=== PATIENT | male | born 1980 | race Caucasian/White ===

== ENCOUNTER 2023-03-25 10:45 | Outpatient (CLI) | payer OTHER, SELFPAY ==
[2023-03-25 11:34] LABS: Hematocrit 46.1 % (42.0-52.0); Hemoglobin 15.5 g/dL (14.0-18.0); Mean Corpuscular HGB Conc 33.6 g/dl (32-36); Mean Corpuscular Volume 89.2 fl (80-100); Mean Platelet Volume 9.7 fl (7.4-10.4); Platelet Count Result 313 k/mm3 (150-375); Red Blood Count 5.17 M/mm3 (4.6-6.20); Red Cell Distribution Width 12.2 % (11.5-14.5); White Blood Count 8.5 K/mm3 (4.5-10.0)
[2023-03-25 11:57] LABS: Alanine Aminotransferase 45 U/L (6-50); Albumin Level 4.9 g/dL (3.5-5.1); Alkaline Phosphatase 77 U/L (38-126); Anion Gap 11 mmol/L (8-16); Aspartate Amino Transferase 43 U/L (17-59); Bilirubin,Total 1.4 mg/dL (0.2-1.3); Blood Urea Nitrogen 18 mg/dL (9-20); Calcium 9.8 mg/dL (8.4-10.2); Carbon Dioxide 27 mmol/L (22-30); Chloride 104 mmol/L (98-107); Cholesterol 254 mg/dL (0-200); Estimated Glomerular Filt Rate > 60; Glucose 102 mg/dL (65-110); HDL Direct 56 mg/dL; Potassium 4.1 mmol/L (3.4-5.0); Sodium 142 mmol/L (137-145); Triglycerides 175 mg/dL (<150)
[2023-03-25 12:07] LABS: LDL Cholesterol Direct 123 mg/dL
[2023-03-29 14:59] LABS: Testosterone Free 51.5 pg/mL (35.0-155.0); Testosterone Total 324 ng/dL (250-1100)
== END 2023-03-25 10:46 | disposition home or self-care (01) ==
LOC: ANHLAB 10:47
PROVIDERS: PCP Family Medicine; Visit Provider Family Medicine
DX: Z00.00 Encounter for general adult medical examination without abnormal findings (principal); R68.82 Decreased libido; E11.9 Type 2 diabetes mellitus without complications
CPT/HCPCS: 36415; 80053; 80061; 83036; 84402; 84403; 85027

== ENCOUNTER 2023-05-25 09:01 | Outpatient (CLI) | payer OTHER, SELFPAY ==
[2023-05-25 09:58] LABS: Appearance Urine Clear (Clear); Blood Urine Negative (Negative); Color Urine Yellow (Yellow); Glucose Urine UA Negative (Negative); Ketones Urine Negative (Negative); Protein Urine Negative (Negative); Specific Grav Ur >= 1.030 (1.001-1.035)
[2023-05-25 09:59] LABS: Add Urine Microscopic? NO; Bilirubin Urine Negative (Negative); Leukocyte Esterase Ur Negative LEU/UL (Negative); Nitrate Urine Negative (Negative); Urobilinogen Urine 0.2 mg/dL (<2.0)
[2023-05-25 11:02] LABS: Trichomonas Vag PCR NOT DETECTED (NOT DETECTE)
[2023-05-25 11:27] LABS: Chlamydia trachomatis NOT DETECTED (NOT DETECTE); Neisseria gonorrhoeae PCR NOT DETECTED (NOT DETECTE)
== END 2023-05-25 09:02 | disposition home or self-care (01) ==
LOC: ANHLAB 09:03
PROVIDERS: PCP Family Medicine; Visit Provider Nurse Practitioner Family
DX: R30.0 Dysuria (principal); R36.1 Hematospermia; Z20.2 Contact with and (suspected) exposure to infections with a predominantly sexual mode of transmission
CPT/HCPCS: 81003; 87086; 87491; 87591; 87661

== ENCOUNTER 2023-08-30 12:57 | Outpatient (CLI) | payer OTHER, SELFPAY ==
[2023-08-30 13:55] LABS: Alanine Aminotransferase 65 U/L (6-50); Albumin Level 4.8 g/dL (3.5-5.1); Alkaline Phosphatase 68 U/L (38-126); Anion Gap 8 mmol/L (4-12); Aspartate Amino Transferase 47 U/L (17-59); Bilirubin,Total 1.1 mg/dL (0.2-1.3); Blood Urea Nitrogen 24 mg/dL (9-20); Calcium 9.7 mg/dL (8.4-10.2); Carbon Dioxide 28 mmol/L (22-30); Chloride 105 mmol/L (98-107); Estimated Glomerular Filt Rate > 60; Glucose 89 mg/dL (65-110); Sodium 141 mmol/L (137-145)
== END 2023-08-30 12:58 | disposition home or self-care (01) ==
LOC: ANHLAB 12:59
PROVIDERS: PCP Family Medicine; Visit Provider Family Medicine
DX: E11.9 Type 2 diabetes mellitus without complications (principal); R77.9 Abnormality of plasma protein, unspecified
CPT/HCPCS: 36415; 80053; 83036

== ENCOUNTER 2023-09-27 18:53 | Emergency (ER) | payer OTHER, SELFPAY ==
--- NOTE | ~2023-09-27 | XR_ITS ---
EXAMINATION: XR hand RT min 3V, XR wrist RT min 3V DATE: 09/27/2023 19:23 INDICATION: Right hand and wrist pain post fall TECHNIQUE: 1. Posteroanterior, ulnar deviation, oblique, and lateral views of the right wrist were obtained. 2. Dorsal palmar, oblique and lateral views of the right hand were obtained. COMPARISON: None FINDINGS: 2-3 mm ulnar -3 days. Alignment of the right hand and wrist is otherwise normal. No acute fracture i dentified. 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 No focal soft tissue swelling. IMPRESSION: 1. No acute osseous abnormality. Reviewed, dictated and finalized at location A. IMPRESSION: 1. No acute osseous abnormality.
--- NOTE | 2023-09-27 19:00 | ED.FALL ---
HPI - Fall General Chief Complaint: Extremity Injury, Upper Stated Complaint: FALL/R ARM/BILAT KNEES/CHIN INJURIES Time Seen by Provider: 09/27/23 19:00 Source: patient Mode of arrival: ambulatory Limitations: no limitations History of Present Illness HPI Narrative: Reji is a 42-year-old male patient presenting to the clinic today with complaints of a fall down the stairs approximately 30 minutes prior to arrival. He reports he was standing at the top of the stairs helping his [id number] carry a safe when the safe became unsteady and he fell back with the stay falling on top of him. He reports pain to the right lateral hand, wrist, and proximal forearm. Also reports that he feels as though his knees are bruised and his chin is bruise. Denies hitting his head or any loss of consciousness. He denies any back pain or neck pain. Related Data Home Medications Medication Instructions Recorded Confirmed cetirizine 10 mg tablet (Zyrtec) 10 mg PO DAILY 02/16/23 09/27/23 triamcinolone acetonide 55 mcg 2 spray intranasal DAILY 02/16/23 09/27/23 nasal spray aerosol (Nasacort Allergy) citalopram 40 mg tablet 40 mg PO DAILY 09/27/23 09/27/23 Allergies Allergy/AdvReac Type Severity Reaction Status Date / Time levofloxacin Allergy Mild Rash Verified 09/27/23 19:08 Sulfa (Sulfonamide Allergy Rash Verified 09/27/23 19:08 Antibiotics) AZELASTINE HCL Allergy Mild Unknown Uncoded 09/27/23 19:08 Review of Systems Review of Systems: Pertinent positives per HPI. Patient denies any fever, chills, rash, headache, visual changes, dizziness, cough, runny nose, sore throat, shortness of breath, chest pain, palpitations, nausea, vomiting, diarrhea, constipation, abdominal pain, or any urinary issues. [facility] Past Medical History Medical History Heel pain Libido, decreased Preventative health care Social History Social History Smoking status: Never smoker Alcohol intake: never Substance use: never Substance use type: does not use Comments At the time of my signature, I reviewed and agree with the nursing past medical, surgical, social, and family history. There is no relevant family history pertinent to the patient complaint. Exam Narrative: General: Well-developed, well nourished, in no apparent distress Head: Normocephalic, atraumatic. Cardio: Regular rate and rhythm, s1 and s2 normal, no murmur appreciated. Resp: Clear to auscultation bilaterally, no rhonchi, rales, wheezing or rubs. Musculoskeletal: No deformity, tender to palpation over the lateral 5th metacarpal, mild tenderness to palpation over the lateral wrist and proximal forearm, mild swelling/bruising noted to the lateral hand, wrist, and proximal forearm, no bruising or abrasions noted to the knees common knees are mildly tender anteriorly however there is no deformity, mild tenderness to palpation over the chin without laceration or bruising noted, grossly normal range of motion, muscle strength strong and equal, peripheral pulse strong, no edema, no cyanosis, normal gait and station Course Course Emergency Course: Portions of this record may have been created with voice recognition software. Level of Care: Express Care Visit Vital Signs Vital signs: Vital signs reviewed MDM - Fall MDM Narrative Medical decision making narrative: At the time of visit patient is resting comfortably on the exam table. Patient appears to be nontoxic. Diagnostics: X-ray of the right hand and wrist was performed and are negative for any sign of fracture or malalignment Plan: I suspect patient has a right hand, wrist, and forearm contusion. Also has bilateral knee contusion and chin contusion. Supportive measures were discussed with the patient and they voiced understanding discharge instructions and agrees to treatment plan.
[2023-09-27 19:09] VITALS: BP 134/81; PULSE 92; RESP 16; TEMP 36.6; O2SAT 100
[2023-09-27 19:10] VITALS: BP 134/81; PULSE 92; RESP 16; TEMP 36.6; O2SAT 100
== END 2023-09-27 20:10 | disposition home or self-care (01) ==
PROVIDERS: Emergency Provider Nurse Practitioner Family; PCP Family Medicine
DX: S60.221A Contusion of right hand, initial encounter (principal); S60.211A Contusion of right wrist, initial encounter; S00.83XA Contusion of other part of head, initial encounter; S80.02XA Contusion of left knee, initial encounter; S80.01XA Contusion of right knee, initial encounter; W10.9XXA Fall (on) (from) unspecified stairs and steps, initial encounter
CPT/HCPCS: 73110; 73130; 99213; G0463

== ENCOUNTER 2024-02-13 10:33 | Outpatient (CLI) | payer OTHER, SELFPAY ==
--- NOTE | 2024-02-22 17:16 | P.SLEEP_ITS ---
Sleep Study - Home Unattended Date of Study: 02/13/24 Ordering Provider: Toño Ambrocio MD Interpreting Provider: Jazmine Mills DO Home Sleep Study Type: Watch PAT Height: 1.83 m Weight: 106.594 kg Body Mass Index: 31.8 Neck Circumference (inches): 16 Coventry: 7 Reason for Sleep Study Snoring Sleep History The patient is a 43-year-old male that had a sleep study ordered by her primary care for evaluation of sleep apnea. The patient admits to snoring loudly, excessive daytime sleepiness, interruptions in breathing while asleep and trouble maintaining sleep. The patient denies choking or gasping. The patient denies having trouble breathing on his back. The patient does have morning headaches. The patient denies having a dry or sore mouth/ throat in the morning. He denies nocturnal heartburn. He denies nocturia. He denies having trouble falling asleep. He denies having difficulty returning to sleep if he wakes up throughout the night. He denies any hypnotic or sedative use. He denies feeling anxious about sleep. He does feel tired or sleepy during the day. He does feel tired in the morning. He does have the urge to fall asleep during the day. He denies feeling drowsy while driving. He denies sleep paralysis, cataplexy and hypnagogic / hypnopompic hallucinations. He denies clenching or grinding his teeth. He denies kicking or jerking his legs excessively. He denies having a restless feeling in his legs. He goes to bed at 10:00 p.m. on work days and 11:00 p.m. on his days off. It takes him 15 minutes to fall asleep. He gets 7-1/2 hours of sleep on work days and 9-1/2 hours of sleep on days off. His sleep is much more restorative on his days off. He denies taking any planned naps. He denies dream enactment behavior. He denies sleep walking. He denies consuming any caffeinated beverages throughout the day. He denies tobacco and alcohol use. He denies exercising on a regular basis. PENDING SALE TO [facility] Past Medical History Medical History Heel pain Libido, decreased Preventative health care Social History Social History Smoking status: Never smoker Alcohol intake: never Substance use: never Substance use type: does not use Living arrangements: with family Occupation/Education: occupation Gender identity (if verbalized by the patient): Male Sexual Orientation (if Verbalized by the Patient): Straight or Heterosexual Medications Home Medications ?Medication ?Instructions ?Recorded ?Confirmed ?Type cetirizine 10 mg tablet (Zyrtec) 10 mg PO DAILY 02/16/23 12/06/23 History triamcinolone acetonide 55 mcg 2 spray intranasal DAILY 02/16/23 12/06/23 History nasal spray aerosol (Nasacort Allergy) betamethasone dipropionate 0.05 % 1 applic topical BID PRN rash #45 08/03/23 12/06/23 Rx topical ointment grams citalopram 10 mg tablet 10 mg PO DAILY #90 tabs 12/25/23 Rx citalopram 20 mg tablet 20 mg PO DAILY #90 tabs 12/25/23 Rx Sleep Procedure The sleep study was completed using [employer] a technically adequate device with seven channels: peripheral arterial tone, actigraphy, body position, snore, respiratory movement, pulse oximetry, sleep staging, and heart rate. Prior to using the device, the patient received verbal and written instructions for its application and was provided with the help desk phone number for additional telephonic instruction with 24-hour availability of qualified personnel to answer questions. The study was scored using CMS guidelines. Sleep Architecture The total recording time is 7 hrs, 46 min. The total sleep time is 7 hrs, 24 min. Sleep latency is 15 minutes. REM latency is 62 minutes. The patient had 2 episodes of waking. Sleep architecture shows 19.5% deep sleep, 57.1% light sleep , and (as % Total Sleep Time) showed NREM (Light 57.1%; Deep 19.5%), and a 23.4% stage REM. The patient spent 51.1% of total sleep time in the supine position. Sleep efficiency was 95.28. Respiratory Analysis The overall AHI (pAHI 4%:) is 58.1. The central AHI is 4.4. The AHI was 53.1 in NREM and 74.4 in REM sleep. The AHI was 64.8 in Supine and 51.0 in Non-supine sleep. Percent of Yehuda Bai respirations is 0.0. Oximetry Data The oxygen desaturation index (GRANT 4%:) is 56.5. The mean saturation is 91%, and the lowest saturation is 83%. Time spent with saturation < 88% is 26.9 minutes. Snoring Profile Snoring average intensity is 45 dB. The patient snored above 45 decibels for 166.4 minutes, 37.5% of sleep time. Cardiac Profile The average pulse rate is 68 beats per minutes. The lowest pulse rate is 43 bpm. The highest pulse rate reported is 92 bpm. Atrial fibrillation was not detected. Premature beats occur 0.1 per minute. Assessment and Plan Assessment and Plan (1) PETRA (obstructive sleep apnea): Code(s): G47.33 - Obstructive sleep apnea (adult) (pediatric) Status: Acute Assessment and Plan: The patient had an overall AHI of 58.1 with desaturation down to 83%. This is consistent with severe sleep apnea. I recommend that the patient have a CPAP Titration study with the use of a hypnotic (Lunesta 2-3 mg or Ambien 5-10 mg) to get enough sleep data and find an optimal pressure setting. Data The data obtained during this sleep study is adequate for interpretation. Certification This sleep study has been reviewed by a board certified sleep medicine physician.
[2024-02-22 17:27] VITALS: BMI 31.8
== END 2024-02-14 10:40 | disposition home or self-care (01) ==
LOC: ANHCSM 10:55
PROVIDERS: PCP Family Medicine; Visit Provider Family Medicine
DX: G47.33 Obstructive sleep apnea (adult) (pediatric) (principal)
CPT/HCPCS: 95800

== ENCOUNTER 2024-03-05 15:58 | Emergency (ER) | payer OTHER, SELFPAY ==
--- NOTE | ~2024-03-05 | XR_ITS ---
XR shoulder LT min 2V Ordering provider: Erendira Irizarry APRN History: . pain post fall . Comparison: None. FINDINGS: BONES: No acute fracture or dislocation. JOINT SPACES: The acromioclavicular joint is normal. The glenohumeral joint is normal. SOFT TISSUES: Normal. IMPRESSION: No acute osseous abnormality left shoulder. Reviewed, dictated and finalized at location A. 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
--- NOTE | 2024-03-05 16:01 | ED.GENADULT ---
HPI - General Adult General Chief complaint: Extremity Injury, Upper Stated complaint: L SHOULDER/BACK PAIN Time Seen by Provider: 03/05/24 16:12 Source: patient, RN notes reviewed and old records reviewed Mode of arrival: ambulatory Limitations: no limitations History of Present Illness HPI narrative: 43-year-old male presents to the [facility] with left lateral shoulder pain and low back pain after slipping and falling on ice 2 hours ago. States he landed on his shoulder Patient denies any loss retention of bowel or bladder. No midline tenderness. No treatment prior to arrival Patient denies any head. No loss of consciousness. Onset (ago): hour(s) (2) Treatments prior to arrival: none Related Data Home Medications ?Medication ?Instructions ?Recorded ?Confirmed ?Last Taken ?Type cetirizine 10 mg tablet (Zyrtec) 10 mg PO DAILY 02/16/23 12/06/23 Unknown History triamcinolone acetonide 55 mcg 2 spray intranasal DAILY 02/16/23 12/06/23 Unknown History nasal spray aerosol (Nasacort Allergy) Allergies Allergy/AdvReac Type Severity Reaction Status Date / Time levofloxacin Allergy Mild Rash Verified 03/05/24 16:08 Sulfa (Sulfonamide Allergy Rash Verified 03/05/24 16:08 Antibiotics) AZELASTINE HCL Allergy Mild Unknown Uncoded 03/05/24 16:08 Review of Systems Review of Systems: All systems reviewed & are unremarkable except as noted in HPI and below Constitutional: Constitutional: Reports no additional constitutional complaints ENT: Reports system reviewed and no additional complaints, except as documented Cardiovascular: Cardiovascular: Reports no additional cardiovascular complaints, Denies chest pain and Denies dyspnea Respiratory: Respiratory: Reports no additional respiratory complaints, Denies chest congestion, Denies cough and Denies dyspnea Musculoskeletal: Musculoskeletal: Reports as per HPI, Reports back pain, Reports arthralgias (Left lateral) and Denies limited range of motion Integumentary/Breasts: Skin/Breast: Reports system reviewed and no additional complaints, except as docu [facility] Past Medical History Medical History Heel pain Libido, decreased Preventative health care Social History Social History Smoking status: Never smoker Alcohol intake: never Substance use: never Substance use type: does not use Living arrangements: with family Occupation/Education: occupation Gender identity (if verbalized by the patient): Male Sexual Orientation (if Verbalized by the Patient): Straight or Heterosexual Comments At the time of my signature, I reviewed and agree with the nursing past medical, surgical, social, and family history. There is no relevant family history pertinent to the patient complaint. Exam Const: General: cooperative, healthy appearing, comfortable, no acute distress, well developed, alert and well nourished Nutritional Appearance: well nourished Orientation/consciousness: patient oriented x3 Limitations: no limitations HENMT: Head: normal to inspection Eyes: General: appearance normal, both eyes and all related structures Alignment and Position: alignment normal Neck: Neck: normal visual inspection, full ROM, no lymphadenopathy and no meningeal signs Chest: Chest palpation & inspection: normal inspection of the chest Resp: Effort & Inspection: normal respiratory effort and able to speak in complete sentences Auscultation: clear to auscultation bilaterally, no crackles, no rales, no rhonchi and no wheezes Cardio: Rate: regular rate Back/Spine/Pelvis: Back/spine/pelvis image:  1. Pain with movement. No midline tenderness. No erythema or ecchymosis noted. No swelling noted. Skin: General skin exam: normal color and no rashes or lesions noted Neuro: General: patient oriented x3, gait normal, moves all extremities and no meningeal signs Cognition (Neuro): normal cognition Speech: normal speech Gait exam (Neuro): Normal gait present Extrem: General: normal to inspection, full ROM, capillary refill normal and normal gait Left upper extremity: shoulder/upper arm tenderness (Lateral aspect) and normal ROM; no swelling, no abrasions, no lacerations, no ecchymosis, no crepitus, no foreign bodies, no penetrating wound and no deformity Psych: Appearance: grossly normal and well kempt Mental Status: mental status grossly normal Speech and movement: Normal speech and movement present and Clear speech present Affect: normal affect Attitude: cooperative Course Course Level of Care: Express Care Visit Vital Signs Vital signs: Vital Signs Temperature 98.4 F 03/05/24 16:09 Pulse Rate 96 03/05/24 16:09 Respiratory Rate 16 03/05/24 16:09 Blood Pressure 143/77 H 03/05/24 16:09 Pulse Oximetry 99 03/05/24 16:09 Temperature 98.4 F 03/05/24 16:09 Pulse Rate 96 03/05/24 16:09 Respiratory Rate 16 03/05/24 16:09 Blood Pressure 143/77 H 03/05/24 16:09 Pulse Oximetry 99 03/05/24 16:09 Reviewed Medical Decision Making MDM Narrative Medical decision making narrative: Patient sitting comfortably in exam room. Nontoxic, vitals stable. Patient in no acute distress Patient presents for lumbar discomfort and left shoulder pain post fall. No acute findings noted on exam. X-rays negative. Most likely strain, contusion Patient appropriate for outpatient treatment and follow-up Discharge instructions reviewed with patient, as well as provided in writing per nursing staff. The instructions also include specific and strict return/GO TO THE ER as well as f/u information. All questions have been answered, and the patient deny any further questions with discharge and discharge plan. Some parts of this dictation were generated by voice recognition software and may contain typographical and/or grammatical inaccuracies. Differential Diagnosis Differential Diagnosis: Lumbar strain, shoulder fracture, sprain, contusion Medical Records Medical records reviewed: Yes I reviewed the external patient's medical records. Vital Signs Vital Signs: Vital Signs Temperature 98.4 F 03/05/24 16:09 Pulse Rate 96 03/05/24 16:09 Respiratory Rate 16 03/05/24 16:09 Blood Pressure 143/77 H 03/05/24 16:09 Pulse Oximetry 99 03/05/24 16:09 Temperature 98.4 F 03/05/24 16:09 Pulse Rate 96 03/05/24 16:09 Respiratory Rate 16 03/05/24 16:09 Blood Pressure 143/77 H 03/05/24 16:09 Pulse Oximetry 99 03/05/24 16:09 Reviewed Lab Data Lab results reviewed: Yes I reviewed the patient's lab results. Labs: Reviewed Imaging Data Radiologist's impression: XR shoulder LT min 2V Ordering provider: Erendira Irizarry APRN History: . pain post fall . Comparison: None. FINDINGS: BONES: No acute fracture or dislocation. JOINT SPACES: The acromioclavicular joint is normal. The glenohumeral joint is normal. SOFT TISSUES: Normal. IMPRESSION: No acute osseous abnormality left shoulder. Critical Care Time Critical Care Time Critical Care Time: No Discharge Plan Discharge Clinical Impression: Acute shoulder pain, Low back pain, Fall Patient Disposition: Home, Self-Care Condition: Stable Instructions: Low Back Strain (ED), Shoulder Sprain (ED), Lower Back Exercises (ED) Additional Instructions: Take ibuprofen as directed to decrease inflammation and to help pain. Take Baclofen (muscle relaxer) as directed. Do not drink, drive, operate machinery, or do anything dangerous while taking this medication Exercise:Combine aerobic exercise, like walking or swimming, with specific exercises to keep the muscles in your back and abdomen strong and flexible. Proper Lifting:Be sure to lift heavy items with your legs, not your back. Do not bend over to pick something up. Keep your back straight and bend at your knees. Weight:Maintain a healthy weight. Being overweight puts added stress on your lower back. Avoid Smoking:Both the smoke and the nicotine cause your spine to age faster than normal. Proper Posture:Good posture is important for avoiding future problems. A therapist can teach you how to safely stand, sit, and lift. Use warm moist heat to help with pain. Using topical such as Biofreeze, Mati-Albarran or Aspercreme can also help Follow up with Primary provider in 2-3 days, This may become a chronic condition and they will be the one to help manage your pain and order additional testing. Go to the nearest ER if you develop problems with bladder/bowel function, weakness or loss of feeling in one or both of your legs. Patient Language: Afghan Prescriptions: New baclofen 10 mg tablet 10 mg PO TID PRN (Reason: muscle pain) Qty: 10 0RF No Action betamethasone dipropionate 0.05 % ointment 1 applic topical BID PRN (Reason: rash) Qty: 45 0RF triamcinolone acetonide [Nasacort Allergy] 55 mcg aerosol,spray 2 spray intranasal DAILY Rx Instructions: administer into each nostril cetirizine [Zyrtec] 10 mg tablet 10 mg PO DAILY citalopram 20 mg tablet 20 mg PO DAILY Qty: 90 0RF citalopram 10 mg tablet 10 mg PO DAILY Qty: 90 0RF Rx Instructions: Take with 20mg tablet for a total of 30mg daily Follow-up/Referrals: Toño Ambrocio MD [Primary Care Provider] - 2 Weeks ([facility] care follow [facility] ) Stand Alone Forms: Work/School Release IP Time of Disposition: 16:48
[2024-03-05 16:09] VITALS: BP 143/77; PULSE 96; RESP 16; TEMP 36.9; O2SAT 99
== END 2024-03-05 16:51 | disposition home or self-care (01) ==
PROVIDERS: Emergency Provider Nurse Practitioner; PCP Family Medicine
DX: M25.512 Pain in left shoulder (principal); M54.50 Low back pain, unspecified; W00.0XXA Fall on same level due to ice and snow, initial encounter
CPT/HCPCS: 73030; 99213; G0463

== ENCOUNTER 2024-04-04 09:07 | Outpatient (CLI) | payer OTHER, SELFPAY ==
--- OUTSIDE RECORDS SUMMARY | 2024-04-04 09:26 | XMS_ITS | Encounter Summary ---
Author Organization [facility] Address [address] [place] [address] Phone Care Team Providers Care Revenue Coordinator Name Role Phone Fausto Meza MD Primary Care Provider + Encounter Details Date Type Department Care Team (Late st Contact Info) Description 06/26/2017 Orders Only [facility] ProviderRosio MD [facility] [place] [address] Social History Tobacco Use Types Packs/Day Years Used Date Smoking Tobacco: Never Smokeless Tobacco: Never Alcohol Use Standard Drinks/Week Comments No 0 (1 standard drink = 0.6 oz pur e alcohol) Sex and Gender Information Value Date Recorded Sex Assigned at Not on file Legal Sex Male 9:17 PM [employer] Gender Identity Male 09/13/2019 9:52 AM CDT Sexual Orientation Straight 09/13/2019 9: 52 AM CDT documented as of this encounter Plan of Treatment Not on file documented as of this encounter Procedures Procedure Name Priority Date/Time Associated Diagnosis Comments DISCHARGE LABORATORY CUMULATIVE REPORT 06/26/2017 12:00 AM CDT documented in this encounter Results * DISCHARGE LABORATORY CUMULATIVE REPORT (06/26/2017 12:00 AM CDT) Narrative 06/26/2017 12:00 AM CDT Ordered by an unspecified provider. Historical Provider LAB BLOOD ORDERABLES Lizzette l Result documented in this encounter Visit Diagnoses Not on filedocumented in this encounter Care Teams Revenue Coordinator Relationship Specialty Start Date End Date Fausto Meza MD [address] [facility] [place] [address] PCP - General 05/27/16 documented as of this encounter
--- OUTSIDE RECORDS SUMMARY | 2024-04-04 09:26 | XMS_ITS | Encounter Summary ---
Author Organization [facility] Address [address] [facility] [place] [address] Care Team Providers Care Farm Equipment Maintenance Supervisor Name Role Phone Fausto Meza MD Primary Care Provider [phone] Chano Hernandez MD Unavailable [phone] Reason for Referral * Sleep (Routine) - Closed Specialty Diagnoses / Procedures Referred By Jenny [email or web address] Referred To Contact Sleep Center Diagnoses Central sleep apnea Procedures HOME SLEEP STUDY Ariela Valadez APRN-CNP [address] [place] [address] [facility] Home Sleep Study [address] [address] Referral ID Status Reason Start Date Expiration Date Visits Re quested Visits Authorized [id number] Closed 12/29/2023 12/28/2024 1 1 Encounter Details Date Type Department Care Team (Late st Contact Info) Description 12/29/[address] [facility] [address] [place] [address] Ariela Valadez APRN-CNP [address] [place] [address] Central sleep apnea Social History Tobacco Use Types Packs/Day Years Used Date Smoking Tobacco: Never Alcohol Use Standard Drinks/Week Comments Yes 0 (1 standard drink = 0.6 oz pur e alcohol) rarely Sex and Gender Information Value Date Recorded Sex Assigned at Not on file Gender Identity Not on file Sexual Orientation Not on file documented as of this encounter Plan of Treatment Scheduled Orders Name Type Priority Associated Diagnoses Orde r Schedule HOME SLEEP STUDY Sleep Center Routine Central sleep apnea 1 Occurrences starting 12/29/2023 until 12/29/2024 documented as of this encounter Visit Diagnoses Diagnosis Central sleep apnea- Primary Unspecified sleep apnea documented in this encounter Care Teams Farm Equipment Maintenance Supervisor Relationship Specialty Start Date End Date Fausto Meza MD [address] [address] PCP - General 01/16/09 Chano Hernandez MD [address] [address] Otolaryngology 04/05/13 documented as of this encounter
--- OUTSIDE RECORDS SUMMARY | 2024-04-04 09:26 | XMS_ITS | Clinical Summary ---
Author Organization [facility] Address [address] [facility] [address] [place] [address] Phone Care Team Providers Care Scaffold Builder Name Role Phone Fausto Meza MD Primary Care Provider + Allergies Active Allergy Reactions Criticality Noted Date Comments Azelastine Other (See comments) Medium 09/03/2018 Throat swelling Levofloxacin Hives Medium Sulfa (Sulfonamide Antibiotics) Itching Low 06/26/2017 Medications cetirizine (ZyrTEC) 10 mg tablet Take 1 tablet (10 mg total) by mouth daily Active triamcinolone (NASACORT) 55 mcg nasal inhaler Administer 2 sprays into each nostril nightly Active famotidine (PEPCID) 20 mg tablet Take 1 tablet (20 mg total) by mouth 2 (two) times a day as needed for heartburn Active multivit mdxhakll-pgxp-T A-calcium (THERA-M) 9 mg iron-400 mcg tabletIndicatio ns:Vitamin Deficiency Prevention Take 1 tablet by mouth daily Active omega 5-faq-phg-fish oil (Fish OiL) 100-160-1,000 mg capsule Take 1 capsule by mouth daily Active ascorbic acid (VITAMIN C) 500 mg tablet,chewable Take 1 tablet/chew tab (500 mg total) by mouth daily Active cholecalciferol (VITAMIN D-3) 25 mcg (1,000 unit) tablet Take 1 tablet (1,000 Units total) by mouth daily Active zinc 50 mg tablet Take 1 tablet by mouth daily Active magnesium oxide (MAG-OX) 400 mg (241.3 mg elemental magnesium) tabletIndicatio ns:hypomagnesem ia Take 1 tablet (400 mg total) by mouth daily Active LORazepam (ATIVAN) 0.5 mg tablet Take 1-2 tablets (0.5-1 mg total) by mouth every 6 (six) hours as needed for anxiety 30 tablet 3 Active citalopram (CeleXA) 40 mg tablet TAKE 1 TABLET DAILY 90 tablet 3 4 Active Active Problems Problem Noted Date Diagnosed Date Chronic prostatitis 02/23/2021 Assessment & Plan (02/23/2021 11:24 AM AUTOMATIC PACKER OPERATOR): Worsening - Patient is symptomatic Urine dip was negative this time as well as the beginning of January Placed on Levaquin for 14 days Referral to urology Controlled type 2 diabetes m ellitus without complication, without long-term current use of insulin ([facility]) 08/16/2019 Obstructive sleep apnea 09/13/2018 BMI 31.0-31.9,adult 09/03/2018 BMI 35.0-35.9,adult 06/26/2017 POLLY (generalized anxiety disorder) 01/16/2009 Immunizations Name Administration Dates Next Due Flucelvax Influenza Quad 12/07/2018 Influenza, Quadrivalent, Spl it, Preservative Free, Intramuscular 01/07/2018,11/28/2015 Influenza, Trivalent, Split, Preservative Free, Intradermal 12/18/2014 Influenza, Unspecified 04/06/2022(Deferr ed: Patient Refused),12/13/2016 Tdap 07/25/2014 Surgical History Surgery Date Site/Laterality Comments SINUS SURGERY Medical History Medical History Date Comments Hx Other Medical rhinoplasty; Co mments: [facility] 02/12/2015 - Multiple environmental allergies Allergies, environmental; Comments: [facility] 02/12/2015 - Diabetes ([facility]) PETRA (obstructive sleep apnea) Family History Medical History Relation Name Comments Asthma Brother Asthma; Bladder Cancer Father Cancer, bladd er; Diabetes type II Father Diabetes me llitus type 2; Hypertension Father Hypertension; Diabetes type II Mother Neuropathy Mother Alive and well; Relation Name Status Comments Brother Alive Father Mother Social History Tobacco Use Types Packs/Day Years Used Date Smoking Tobacco: Never Smokeless Tobacco: Never Tobacco Cessation:Counseling Given: Not Answered Alcohol Use Standard Drinks/Week Comments No 0 (1 standard drink = 0.6 oz pur e alcohol) PHQ-2 Answer Date Recorded PHQ-2 Total Score (If total score is 3 or more points, staff should administer the PHQ-9) 0 07/27/2021 Sex and Gender Information Value Date Recorded Sex Assigned at Not on file Legal Sex Male 9:17 PM AUTOMATIC PACKER OPERATOR Gender Identity Male 09/13/2019 9:52 AM CDT Sexual Orientation Straight 09/13/2019 9: 52 AM CDT 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 Not on file Obstetrics History Last Filed Vital Signs Vital Sign Reading Time Taken Comments Blood Pressure 116/80 11/18/2023 2:24 PM CDT Pulse 78 11/18/2023 2:24 PM CDT Temperature 37 C (98.6 F) 11/18/2023 2:24 PM CDT Respiratory Rate 20 11/18/2023 2:24 PM CDT Oxygen Saturation 97% 11/18/2023 2:24 PM CDT Inhaled Oxygen Concentration - - Weight 108 kg (238 lb) 11/18/2023 2:24 PM CDT Height 185.4 cm (6' 1 ) 11/18/2023 2:24 PM CDT Body Mass Index 31.4 11/18/2023 2:24 PM CDT Plan of Treatment Health Maintenance Due Date Last Done Comments Hepatitis C Screening 1978 Pneumococcal vaccine <65 (1 of 2 - PCV) 1984 Hepatitis B Screening 1996 Depression Screening 07/27/2022 07/27/2021, 02/23/2021, 08/14/2019, Additional history exists Foot Exam 09/06/2022 09/06/2021, 08/16/2019 Hemoglobin A1C 10/04/2022 04/06/2022, 07/02/2021, 03/05/2021, Additional history exists Dilated Eye Exam 01/28/2023 01/28/2022, 09/10/2019 Albumin Creatinine Ratio, Urine 04/06/2023 04/06/2022, 03/05/2021 Lipid Panel 04/06/2023 04/06/2022, 01/0 08/2021, 08/14/2019, Additional history exists Regular Well Visit/Exam 18-64 04/06/2023 04/06/2022, 03/05/2021, 08/14/2019, Additional history exists eGFR 04/06/2023 04/06/2022, 05/2 02/2021, 03/05/2021, Additional history exists Influenza Vaccine (#1) 2023 9, 01/07/2018, 12/13/2016, Additional history exists DTaP/Tdap/Td Vaccine (2 - Td or Tdap) 07/25/2024 07/25/2014 Colon Cancer Screening-Colonoscopy 02/24/2025 02/24/2015 HPV Vaccines Aged Out No longer eligi ble based on patient's age to complete this topic Procedures Procedure Name Priority Date/Time Associated Diagnosis Comments POCT HEMOGLOBIN A1C Routine 04/06/2022 3 :55 PM AUTOMATIC PACKER OPERATOR Controlled type 2 diabetes mellitus without complication, without long-term current use of insulin ([facility]) (HCC) EGFR Routine 04/06/2022 3:32 PM AUTOMATIC PACKER OPERATOR Annual physical exam LIPID PANEL Routine 04/06/2022 3:32 PM AUTOMATIC PACKER OPERATOR Annual physical exam ALBUMIN CREATININE RATIO, URINE Routine 04/06/2022 3:32 PM AUTOMATIC PACKER OPERATOR Controlled type 2 diabetes mellitus without complication, without long-term current use of insulin (CMS/HCC) (HCC) DIABETIC EYE EXAM Routine 09/10/2019 COLONOSCOPY REPORT 02/24/2015 from Last 3 Months or Most Recently Relevant to Health Maintenance Results * POCT hemoglobin A1c (04/06/2022 3:55 PM AUTOMATIC PACKER OPERATOR) Hemoglobin A1C, POC 5.8 % Blood 04/06/2022 3:55 PM AUTOMATIC PACKER OPERATOR us Fausto Meza MD POINT OF CARE TEST ORDER JO Final Result * eGFR (04/06/2022 3:32 PM AUTOMATIC PACKER OPERATOR) eGFR 98 mL/min/1. 73 m2 [facility] Comment: Interpretive Data Reference Interval Normal >/= 90 mL/min/1.73m2 Mildly decreased* 60 - 89 mL/min/1.73m2 Mildly to moderately decreased 45 - 59 mL/min/1.73m2 Moderately to severely decreased 30 - 44 mL/min/1.73m2 Severely decreased 15 - 29 mL/min/1.73m2 Kidney Failure < 15 mL/min/1.73m2 *Relative to young adult level Estimated glomerular filtration rate is determined by the 2020 CKD-EPI equation recommended by the National Kidney Foundation (A Unifying Approach to GFR Estimation: Recommendations of the NKF-ASK Task Force on Reassessing the Inclusion of Race in Diagnosing Kidney Disease, JASN 2020). The CKD-EPI equation should not be used for patients with unstable renal function and has not been validated in children and those over 70. Current interpretive data was last reviewed 2020. Blood 04/06/2022 3:32 PM AUTOMATIC PACKER OPERATOR 04/06/2022 6:08 PM AUTOMATIC PACKER OPERATOR Fausto Meza MD LAB BLOOD ORDERABLES Fin al Result Performing Organization Address [facility] Co de Phone Number [facility] [address] [facility] [place] [address] * Albumin Creatinine Ratio, Urine (04/06/2022 3:32 PM AUTOMATIC PACKER OPERATOR) Albumin Ur <12.0 mg/L [facility] Comment: Interpretive Data No reference range established. Current interpretive data was last revised 2018. Creatinine Ur 132.4 mg/dL [facility] Comment: Interpretive Data No reference range established. Current interpretive data was last revised 2018. Albumin Creatinine Ratio, Ur <9 1 - 29 mg/g [facility] Urine 04/06/2022 3:32 PM AUTOMATIC PACKER OPERATOR 04/06/2022 6:08 PM AUTOMATIC PACKER OPERATOR us Fausto Meza MD LAB URINE ORDERABLES Fin al Result Performing Organization Address [facility]/ZIP Co de Phone Number [facility] [address] Department [place] [address] * (ABNORMAL) Lipid panel (04/06/2022 3:32 PM AUTOMATIC PACKER OPERATOR) Cholesterol 237(H) 30 - 199 mg/dL [facility] Comment: Interpretive Data Ages < or = 19 years Acceptable: <170 mg/dL Borderline high: 170-199 mg/dL High: >or= 200 mg/dL Ages > or = 20 years Desirable: <200 mg/dL Borderline high: 200-239 mg/dL High: >or= 240 mg/dL Literature References: 1. Expert Panel on Integrated Guidelines for Cardiovascular Health and Risk Reduction in Children and Adolescents. Pediatrics 2011;128:S213 2. NCEP Expert Panel. Circulation 2004;110:227 Current Interpretive Data was last revised on 2017. Triglycerides 275(H) <=149 mg/dL [facility] Comment: Interpretive Data Ages < or = 9 years Acceptable: <75 mg/dL Borderline high: 75-99 mg/dL High: >or= 100 mg/dL Ages 10 to 20 years Acceptable: <90 mg/dL Borderline high: 90-129 mg/dL High: >or= 130 mg/dL Ages > or = 20 years Desirable: <150 mg/dL Borderline high: 150-199 mg/dL High: 200-499 mg/dL Very high: >or= 499 mg/dL Literature References: 1. Expert Panel on Integrated Guidelines for Cardiovascular Health and Risk Reduction in Children and Adolescents. Pediatrics 2011;128:S213 2. NCEP Expert Panel. Circulation 2004;110:227 Current Interpretive Data was last revised on 2017. HDL 57 >=40 mg/dL [facility] Comment: Interpretive Data Ages < or = 19 years Acceptable: >45 mg/dL Borderline low: 40-45 mg/dL Low: <40 mg/dL Ages > or = 20 years Desirable: >or= 60 mg/dL Low: <40 mg/dL Literature References: 1. Expert Panel on Integrated Guidelines for Cardiovascular Health and Risk Reduction in Children and Adolescents. Pediatrics 2011;128:S213 2. NCEP Expert Panel. Circulation 2004;110:227 Current Interpretive Data was last revised on 2017. LDL, calculated 125 <=129 mg/dL [facility] Comment: Interpretive Data Ages < or = 19 years Acceptable: <110 mg/dL Borderline high: 110-129 mg/dL High: >or= 130 mg/dL Ages > or = 20 years Optimal: <100 mg/dL Near optimal: 100-129 mg/dL Borderline high: 130-159 mg/dL High: >160 mg/dL Literature References: 1. Expert Panel on Integrated Guidelines for Cardiovascular Health and Risk Reduction in Children and Adolescents. Pediatrics 2011;128:S213 2. NCEP Expert Panel. Circulation 2004;110:227 Current Interpretive Data was last revised on 2017. Non-HDL Cholesterol 180 mg/dL [facility] Comment: Interpretive Data Ages < or = 19 years Acceptable: <120 mg/dL Borderline high: 120-144 mg/dL High: >145 mg/dL Ages > or = 20 years When triglycerides are >200 mg/dL, Non-HDL cholesterol is a secondary target of therapy with treatment goals that are 30 mg/dL greater than the LDL cholesterol target. Literature References: 1. Expert Panel on Integrated Guidelines for Cardiovascular Health and Risk Reduction in Children and Adolescents. Pediatrics 2011;128:S213 2. NCEP Expert Panel. Circulation 2004;110:227 Current Interpretive Data was last revised on 2017. Chol/HDL ratio 4 [facility] Blood 04/06/2022 3:32 PM AUTOMATIC PACKER OPERATOR 04/06/2022 6:08 PM AUTOMATIC PACKER OPERATOR us Fausto Meza MD LAB BLOOD ORDERABLES Fin al Result [facility] [address] Department [place] [address] * Diabetic Eye Exam (09/10/2019) us Historical Provider HEALTH MAINTENANCE Final Result * COLONOSCOPY REPORT (02/24/2015) Anatomical Region Laterality Modality Other Narrative 02/24/2015 Ordered by an unspecified provider. Historical Provider GI PROCEDURE ORDERABLES F inal Result from Last 3 Months or Most Recently Relevant to Health Maintenance Insurance [facility] Address: [address] [place] [id number] PL[facility]/PPO Address: [address] [place] [address] [facility] PLUS [facility]/PPO Address: [address] [place], [place] [id number] Care Teams Scaffold Builder Relationship Specialty Start Date End Date Fausto Meza MD [address] [facility] [address] [address] PCP - General 05/27/16
--- OUTSIDE RECORDS SUMMARY | 2024-04-04 09:26 | XMS_ITS | Referral Summary ---
Author Organization [facility] Address [address] [facility] [place] [address] Care Team Providers Care Ob/Gyn Name Role Phone Fausto Meza MD Primary Care Provider [phone] Chano Hernandez MD Unavailable [phone] Source Comments [facility],non-owned Affiliates and Associated Physician Practices is amultiple site organization consisting of ambulatory clinics and hospital sitesin [place], [place], [place] and [place]. This disclosure is being madepursuant to the Care Everywhere program and may not contain all information available regarding this patient. Last updated 17.[facility] Allergies Active Allergy Reactions Criticality Noted Date Comments Azelastine Hydrochloride 10/14/2008 Levaquin 10/14/2008 Throat swells Medications * Be aware that medications may not be up to date on this document. Alwaysverify current medications with the patient. Medication Sig Dispensed Refills Start Date End Date Status cetirizine-pseudoephe drine 12hr (ZYRTEC-D ALLERGY & CONGESTION) 5-120 MG tablet Take 1 Tab by mouth 2 times daily. Active doxycycline (VIBRAMYCIN) 100 MG tabletIndications:Pha ryngitis, acute 1 Tab 2 times daily. 20 Tab 0 04/05/2013 Active citalopram (CELEXA) 40 MG tablet Take 1 Tab by mouth once daily. 90 Tab 3 11/07/2013 Active citalopram (CELEXA) 40 MG tablet TAKE ONE TABLET BY MOUTH ONCE DAILY 90 Tab 3 01/20/2014 Active triamcinolone acetonide (KENALOG) 0.1 % cream Apply to affected area 2 times daily. 60 g 1 07/25/2014 Active Active Problems Problem Noted Date Diagnosed Date POLLY (generalized anxiety disorder) 01/16/2009 Eczema 10/14/2008 Immunizations Name Administration Dates Next Due INFLUENZA VACCINE 12/19/2013,02/22/2013 TDAP (7yrs+) 07/25/2014 Social History Tobacco Use Types Packs/Day Years Used Date Smoking Tobacco: Never Alcohol Use Standard Drinks/Week Comments Yes 0 (1 standard drink = 0.6 oz pur e alcohol) rarely Sex and Gender Information Value Date Recorded Sex Assigned at Not on file Gender Identity Not on file Sexual Orientation Not on file Last Filed Vital Signs Vital Sign Reading Time Taken Comments Blood Pressure 112/60 04/05/2013 2:35 PM STEAM DISTRIBUTION SUPERVISOR Pulse - - Temperature - - Respiratory Rate - - Oxygen Saturation - - Inhaled Oxygen Concentration - - Weight 104.8 kg (231 lb) 04/05/2013 2:35 PM STEAM DISTRIBUTION SUPERVISOR Height 181.6 cm (5' 11.5 ) 04/05/2013 2:35 PM CS T Body Mass Index 31.77 04/05/2013 2:35 PM STEAM DISTRIBUTION SUPERVISOR Plan of Treatment Not on file Advance Directives Documents on File Type Date Recorded Patient [employer] Officer Expl anation Adv Directive/Living Will/POA 10/14/2008 Care Teams Ob/Gyn Relationship Specialty Start Date End Date Fausto Meza MD [address] [id number] PCP - General 01/16/09 Chano Hernandez MD [address] [facility] [address] [place] [id number] Otolaryngology 04/05/13
--- OUTSIDE RECORDS SUMMARY | 2024-04-04 09:26 | XMS_ITS | Referral Summary ---
Author Organization [facility] Address [address] [facility] [address] [place] [phone] Phone Care Team Providers Care Community Program Assistant Name Role Phone Fausto Meza MD Primary [...] day as needed for heartburn Active multivit stskjufn-xxth-W A-calcium (THERA-M) 9 mg iron-400 mcg tabletIndicatio ns:Vitamin Deficiency Prevention Take 1 tablet by mouth daily Active omega 6-ucu-dey-fish oil (Fish OiL) 100-160-1,000 mg capsule Take [...] 02/23/2021 Assessment & Plan (02/23/2021 11:24 AM REELER OPERATOR): Worsening - Patient is symptomatic Urine dip was negative this time as well as the beginning of January Placed on Levaquin for 14 days Referral to urology Controlled type 2 diabetes m ellitus without complication, without long-term current use of insulin ([facility]) 08/16/2019 Obstructive sleep apnea 09/13/2018 BMI 31.0-31.9,adult 09/03/2018 BMI 35.0-35.9,adult 06/26/2017 POLLY (generalized anxiety disorder) 01/16/2009 Immunizations Name Administration Dates Next Due Flucelvax Influenza Quad 12/07/2018 Influenza, Quadrivalent, Spl it, Preservative Free, Intramuscular 01/07/2018,11/28/2015 Influenza, Trivalent, Split, Preservative Free, Intradermal 12/18/2014 Influenza, Unspecified 04/06/2022(Deferr ed: Patient Refused),12/13/2016 Tdap 07/25/2014 Social History Tobacco Use Types Packs/Day [...] on file Legal Sex Male 9:17 PM REELER OPERATOR Gender Identity Male 09/13/2019 9:52 AM CDT Sexual Orientation Straight 09/13/2019 9: 52 AM CDT 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 Not on file Last Filed Vital Signs [...] 11/18/2023 2:24 PM CDT Plan of Treatment Not on file Procedures Procedure Name Priority Date/Time Associated Diagnosis Comments POCT HEMOGLOBIN A1C Routine 04/06/2022 3 :55 PM REELER OPERATOR Controlled type 2 diabetes mellitus without complication, without long-term current use of insulin (CMS/[facility]) (HCC) EGFR Routine 04/06/2022 3:32 PM REELER OPERATOR Annual physical exam LIPID PANEL Routine 04/06/2022 3:32 PM REELER OPERATOR Annual physical exam ALBUMIN CREATININE RATIO, URINE Routine 04/06/2022 3:32 PM REELER OPERATOR Controlled type 2 diabetes mellitus without complication, without long-term current use of insulin (CMS/HCC) (HCC) DIABETIC EYE EXAM Routine 09/10/2019 COLONOSCOPY REPORT 02/24/2015 from Last 3 Months or Most Recently Relevant to Health Maintenance Results * POCT hemoglobin A1c (04/06/2022 3:55 PM REELER OPERATOR) Hemoglobin A1C, POC 5.8 % Blood 04/06/2022 3:55 PM REELER OPERATOR us Fausto Meza MD POINT OF CARE TEST ORDER JO Final Result * eGFR (04/06/2022 3:32 PM REELER OPERATOR) eGFR 98 mL/min/1. 73 m2 [facility] Comment: Interpretive Data Reference Interval Normal >/= [...] last reviewed 2020. Blood 04/06/2022 3:32 PM REELER OPERATOR 04/06/2022 6:08 PM REELER OPERATOR us Fausto Meza MD LAB BLOOD ORDERABLES Fin al Result Performing Organization Address City/[facility]/ZIP Co de Phone Number [facility] [address] Department [place] [address] * Albumin Creatinine Ratio, Urine (04/06/2022 3:32 PM REELER OPERATOR) Albumin Ur <12.0 mg/L [facility] Comment: Interpretive Data No reference range established. Current interpretive data was last revised 2018. Creatinine Ur 132.4 mg/dL [facility] Comment: Interpretive Data No reference range established. Current interpretive data was last revised 2018. Albumin Creatinine Ratio, Ur <9 1 - 29 mg/g [facility] Urine 04/06/2022 3:32 PM REELER OPERATOR 04/06/2022 6:08 PM REELER OPERATOR us Fausto Meza MD LAB URINE ORDERABLES Fin al Result [facility] [address] Department [place] [address] * (ABNORMAL) Lipid panel (04/06/2022 3:32 PM REELER OPERATOR) Cholesterol 237(H) 30 - 199 mg/dL [facility] Comment: Interpretive Data Ages < or = [...] revised on 2017. Triglycerides 275(H) <=149 mg/dL [facility] Comment: Interpretive Data Ages < or = [...] revised on 2017. HDL 57 >=40 mg/dL [facility] Comment: Interpretive Data Ages < or = [...] on 2017. LDL, calculated 125 <=129 mg/dL [facility] Comment: Interpretive Data Ages < or = [...] revised on 2017. Non-HDL Cholesterol 180 mg/dL [facility] Comment: Interpretive Data Ages < or = [...] last revised on 2017. Chol/HDL ratio 4 [facility] Blood 04/06/2022 3:32 PM REELER OPERATOR 04/06/2022 6:08 PM REELER OPERATOR Fausto Meza MD LAB BLOOD ORDERABLES Fin al Result [facility] [address] Department [place] [address] * Diabetic Eye Exam (09/10/2019) Historical Provider HEALTH MAINTENANCE Final Result * COLONOSCOPY REPORT (02/24/2015) Anatomical Region Laterality Modality Other Narrative 02/24/2015 Ordered by an unspecified provider. Historical Provider GI PROCEDURE ORDERABLES F inal Result from Last 3 Months or Most Recently Relevant to Health Maintenance Insurance [id number] CHOICE PLUS [id number] CHOICE PLUS [facility] CHOICE PLUS Care Teams Community Program Assistant Relationship Specialty Start Date End Date Fausto Meza MD [address] [address] PCP - General 05/27/16
--- OUTSIDE RECORDS SUMMARY | 2024-04-04 09:26 | XMS_ITS | Continuity of Care Document ---
Author Organization [facility] Address [address] [place] [address] Phone Care Team Providers Care Instructor Knitting Name Role Phone Long OD, Amrik Unavailable Unavailable Procedures Procedure Date Eye Exam & Treatment Refraction SV Poly Carb Sph [place] To +/- 4 009 No Charge Glasses Check SV Poly Carb Sph +/- 7.12 To +/- 20 D Ju Frames Deluxe Anti-reflective Coating Sales Tax Eye Exam & Treatment Refraction No Charge Contact Lens Check Contact Lens Fitting SV Poly Carb Sph [place] To +/- 4 007 Vision Svcs Frames Purchases Tax - Medical Advance Directives Directive Yes / No Effective Date File Name No Information Encounters Encounter Description Practice Location Reason(s) For Visit Diagnoses Date Provider Providers Copied on Encounter [facility], [address], [place], [place], [id number], [place] tel:[phone] [facility] No Information 8-201 0 Long OD Amrik. [address] , [address], [place], [address], [place]. tel:[phone] [facility], [address], [place], [place], [id number], [place] tel:[phone] [facility] No Information [address] [employer] . [address] [facility], [address], [place], [place], [address], . tel:[phone] Referring Provider: Amrik Long OD A, [address], [place], [address]. tel:[phone] [facility], [address], [place], [place], [id number], [place] tel:[phone] [facility] No Information 2 4-200 9 Long OD Amrik. [address], [address], [place], [place], [facility], [place]. tel:[phone] [facility], [address], [place], [place], [id number], [place] tel:[phone] [facility] No Information [address] [employer] . [address] [facility], [address], [place], [place], [address], [place]. tel:[phone] Consulting Provider: Ale Carrillo, [address] [place], [place], [facility]. tel:[phone] [facility], [address], [place], [place], [address], [place] tel:[phone] [facility] No Information 0 2-200 9 Long OD Amrik. [address] , [address], [place], [address], [place]. tel:[phone] [facility], [address], [place], [place], [id number], [place] tel:[phone] [facility] No Information 2-200 7 Long OD Amrik. [address], [address], [place], [address], [place]. tel:[phone] [facility], [address], [place], [place], [address], [place] tel:[phone] [facility] No Information May-0 1-200 7 Long OD Amrik. [address] [address] , [address], [place], [address], . tel:[phone] [facility], [address], [place], [place], [id number], [place] tel:[phone] [facility] No Information Apr-2 6-200 7 [employer] . [address] [facility], [address], [place], [place], [address], [place]. tel:[phone] Referring Provider: Amrik Long OD A, [address], [place], [address]. tel:[phone] g Provider: Mignon Barney, [address] [place] [address], [address]. tel:[phone] Family History Family Member Type Diagnosis Age At Onset No Information Payers Payer name Insurance type Covered republican ID Florencio aranda(s) [facility] CI [id number] Social History Type Description Quantity Date Captured Comments Sex Male Smoking Status No Information Chief Complaint And Reason For Visit No Information Reason For Referral Reason For Referral No Information History Of Present Illness Encounter Date Complaint History Of Prese nt Illness No Information Functional Status Date Functional Assessmen t No Information Instructions Date Instruction Additional Infor mation No Information Assessments Type Assessment Date No Information Patient Care Teams Name Effective Dates (start - stop) Status Members No Information
--- OUTSIDE RECORDS SUMMARY | 2024-04-04 09:26 | XMS_ITS | Encounter Summary ---
Author Organization [facility] Address [address] [place] [address] Care Team Providers Care Digital Retoucher Name Role Phone Fausto Meza MD Primary Care Provider + Encounter Details Date Type Department Care Team (Late st Contact Info) Description 04/16/2020 Telephone [facility] [address] [place] [address] Transcribed Order, Provider Social History Tobacco Use Types Packs/Day Years Used Date Smoking Tobacco: Never Smokeless Tobacco: Never Alcohol Use Standard Drinks/Week Comments No 0 (1 standard drink = 0.6 oz pur e alcohol) PHQ-2 Answer Date Recorded PHQ-2 Total Score (If total score is 3 or more points, staff should administer the PHQ-9) 0 08/14/2019 Sex and Gender Information Value Date Recorded Sex Assigned at Not on file Legal Sex Male 9:17 PM [employer] Gender Identity Male 09/13/2019 9:52 AM CDT Sexual Orientation Straight 09/13/2019 9: 52 AM CDT 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
--- OUTSIDE RECORDS SUMMARY | 2024-04-04 09:26 | XMS_ITS | Patient Health Summary ---
Author Organization [facility] Address [address] [facility] [place] [address] Care Team Providers Care Salesforce Specialist Name Role Phone Fausto Meza MD Primary Care Provider [phone] Chano Hernandez MD Unavailable [phone] Note from [facility],non-owned Affiliates and Associated Physician Practices is amultiple site organization consisting of ambulatory clinics and hospital sitesin [place], [place], [place] and [place]. This disclosure is being madepursuant to the Care Everywhere program and may not contain all information available regarding this patient. Last updated 17.[facility] Allergies * Azelastine Hydrochloride * Levaquin(Throat swells) Medications * Be aware that medications may not be up to date on this document. Alwaysverify current medications with the patient. * cetirizine-pseudoephedrine 12hr (ZYRTEC-D ALLERGY & CONGESTION) 5-120 MG tablet Take 1 Tab by mouth 2 times daily. * doxycycline (VIBRAMYCIN) 100 MG tablet(Started 04/05/2013) 1 Tab 2 times daily. * citalopram (CELEXA) 40 MG tablet(Started 11/07/2013) Take 1 Tab by mouth once daily. 3 refills left * citalopram (CELEXA) 40 MG tablet(Started 01/20/2014) TAKE ONE TABLET BY MOUTH ONCE DAILY 3 refills left * triamcinolone acetonide (KENALOG) 0.1 % cream(Started 07/25/2014) Apply to affected area 2 times daily. 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 Pulse - - Temperature - - Respiratory Rate - - Oxygen Saturation - - Inhaled Oxygen Concentration - - Weight 104.8 kg (231 lb) 04/05/2013 2:35 PM TOW MOTOR DRIVER Height 181.6 cm (5' 11.5 ) 04/05/2013 2:35 PM CS T Body Mass Index 31.77 04/05/2013 2:35 PM TOW MOTOR DRIVER Procedures * CULTURE RESPIRATORY+GRAM STAIN (STL)(Performed 11/24/2014) Performed for Acute recurrent maxillary sinusitis * STREP A SCREEN - POINT OF CARE (AMB)(Performed 04/05/2013) Performed for Pharyngitis, acute * CT FACIAL BONES WO CONTRAST(Performed 11/29/2012) Performed for Chronic maxillary sinusitis * XR FINGERS LEFT 2VW OR MORE(Performed 06/26/2010) * URINALYSIS NO MICROSCOPIC NO CULTURE(Performed 08/13/2009) Performed for Heat Exhaustion * THYROID PANEL W TSH (TSH,T4,T3 UPTAKE,FTI)(Performed 08/13/2009) Performed for Heat Exhaustion * COMPREHENSIVE METABOLIC PANEL(Performed 08/13/2009) Performed for Heat Exhaustion * CBC W AUTO DIFFERENTIAL(Performed 08/13/2009) Performed for Heat Exhaustion * ECHOCARDIOGRAM 2D WITH DOPPLER(Performed 01/21/2009) Performed for Other Chest Pain * XR TIBIA FIBULA RIGHT 2VW(Performed 01/03/2009) Results * (ABNORMAL) CULTURE RESPIRATORY+GRAM STAIN (STL) (11/24/2014 2:15 PM CDT) Culture Heavy growth Haemophilus influenzae (beta lactamase negative)(A) ADITHYA 11/27/2014 7:12 AM CDT [facility] Culture Rare growth Staphylococcus species (Coagulase Negative)(A) ADITHYA 11/27/2014 7:12 AM CDT [facility] Gram Stain Moderate White blood cells 11/27/2014 7:12 AM CDT [facility] Gram Stain Moderate Gram negative bacilli 11/27/2014 7:12 AM CDT [facility] Gram Stain Rare Epithelial cells 11/27/2014 7:12 AM CDT [facility] Gram Stain Light Red blood cells 11/27/2014 7:12 AM CDT [facility] Microbiology SINUS / Unknown Collection / Unknown 11/24/2014 2:15 PM CDT 11/24/2014 6:02 PM CDT Chano Hernandez MD LAB - MICROBIOLOG Y ORDERABLES [facility] [address] [place], [place] [address], [facility] [phone] * (ABNORMAL) STREP A SCREEN - POINT OF CARE (AMB) (04/05/2013 3:10 PM TOW MOTOR DRIVER) Strep A Rapid POCT Positive( A) Negative Strep A Internal Control NEGATIVE - POSITIVE Throat swab (specimen) ENTIRE THROAT (SURFACE REGION OF NECK) / Unknown Fausto Meza MD LAB - POINT OF CA RE ORDERABLES * CT SINUS FACIAL BONES NON CONTRAST (11/29/2012 1:35 PM CDT) Anatomical Region Laterality Modality Head Computed Tomogra phy 11/29/2012 2:59 PM CDT Impressions 11/29/2012 3:35 PM CDT Pansinusitis. Edited by Tara Huffman on 11/29/2012 3:02 PM Narrative 11/29/2012 3:[address] FACIAL BONES INDICATION: Chronic sinusitis. TECHNIQUE: 2.5 mm axial images were obtained through the paranasal sinuses. Computer-generated reformatted images were obtained in the coronal plane. Contrast was not administered. FINDINGS: There is mucosal thickening and retained secretion within bilateral maxillary, ethmoid, sphenoid, and frontal sinuses. The left sphenoid sinus is nearly completely opacified. Opacification of the left maxillary sinus is appreciably greater than that of the right. The nasal septum is deviated to the left with a nasal septal spur. The left ostiomeatal unit appears to have been resected, and the left maxillary antrum is patent. The right ostiomeatal unit is patent. Procedure Note Esme Crump MD - 11/29/2012 CT FACIAL BONES INDICATION: Chronic sinusitis. TECHNIQUE: 2.5 mm axial images were obtained through the paranasal sinuses. Computer-generated reformatted images were obtained in the coronal plane. Contrast was not administered. FINDINGS: There is mucosal thickening and retained secretion within bilateral maxillary, ethmoid, sphenoid, and frontal sinuses. The left sphenoid sinus is nearly completely opacified. Opacification of the left maxillary sinus is appreciably greater than that of the right. The nasal septum is deviated to the left with a nasal septal spur. The left ostiomeatal unit appears to have been resected, and the left maxillary antrum is patent. The right ostiomeatal unit is patent. IMPRESSION Pansinusitis. Edited by Tara Huffman on 11/29/2012 3:02 PM [address] Hernandez MD CT ORDERABLES * XR LEFT FINGERS 3 VIEWS (06/26/2010) Anatomical Region Laterality Modality Other Provider Unknown DIAGNOSTIC IMAGING O RDERABLES * URINALYSIS DIPSTICK AUTO (08/13/2009 2:11 PM CDT) Specific [place] UA 1.027 1.005 - 1.030 [facility] ACCOUNT BILL pH UA 6.0 5.0 - 7.5 [facility] ACCOUNT BILL Color UA Yellow Yellow [facility] ACCOUNT BILL Appearance Clear Clear [facility] ACCOUNT BILL Leukocyte UA Negative Negative [facility] ACCOUNT BILL Protein UA Negative Negative/Tra ce [facility] ACCOUNT BILL Glucose UA Negative Negative [facility] ACCOUNT BILL Ketone UA Negative Negative [facility] ACCOUNT BILL Occult Blood Urine Negative Negative [facility] ACCOUNT BILL Bilirubin UA Negative Negative [facility] ACCOUNT BILL Urobilinogen 0.2 0.0 - 1.9 mg/dL [facility] ACCOUNT BILL Nitrite UA Negative Negative [facility] ACCOUNT BILL Microscopic Examination Urine [facility] ACCOUNT BILL Comment:Microscopic follows if indicated. URINE SPECIMEN OBTAINED BY CLEAN CATCH PROCEDURE / Unknown 08/13/2009 2:11 PM CDT 08/13/2009 10:30 PM CDT Narrative Resulting Agency Comment [facility] [id number] Fausto Meza MD LAB - URINALYSIS ORDERABLES Performing Organization Address City/[facility] Co de Phone Number [facility] ACCOUNT BILL * THYROID PANEL W TSH (08/13/2009 2:10 PM CDT) TSH 1.140 0.450 - 4.500 uIU/mL [facility] ACCOUNT BILL T4 Total 8.0 4.5 - 12.0 ug/dL [facility] ACCOUNT BILL T3 Uptake 31 24 - 39 % [facility] ACCOUNT BILL Free Thyroxine Index 2.5 1.2 - 4.9 [facility] ACCOUNT BILL BLOOD SPECIMEN / Unknown 08/13/2009 2:10 PM CDT 08/13/2009 10:27 PM CDT Narrative Resulting Agency [facility] [address] [place] [id number] Fausto Meza MD LAB - CHEMISTRY O RDERABLES Performing Organization Address [facility]/[place] de Phone Number [facility] ACCOUNT BILL * CBC W AUTO DIFFERENTIAL (08/13/2009 2:10 PM CDT) WBC 8.9 4.0 - 10.5 x10E3/uL [facility] ACCOUNT BILL RBC 4.96 4.10 - 5.60 x10E6/uL [facility] ACCOUNT BILL Hemoglobin 15.2 12.5 - 17.0 g/dL [facility] ACCOUNT BILL Hematocrit 42.9 36.0 - 50.0 % [facility] ACCOUNT BILL MCV 87 80 - 98 fL [facility] ACCOUNT BILL MCH 30.6 27.0 - 34.0 pg [facility] ACCOUNT BILL MCHC 35.4 32.0 - 36.0 g/dL [facility] ACCOUNT BILL RDW 12.5 11.7 - 15.0 % [facility] ACCOUNT BILL Platelet Count 320 140 - 415 x10E3/uL [facility] ACCOUNT BILL Granulocytes % 54 40 - 74 % [facility] ACCOUNT BILL Lymphocytes % 33 14 - 46 % [facility] ACCOUNT BILL Monocytes % 9 4 - 13 % [facility] ACCOUNT BILL Eosinophils % 3 0 - 7 % [facility] ACCOUNT BILL Basophils % 1 0 - 3 % [facility] ACCOUNT BILL Immature Cells NOT AVAIL. [facility] ACCOUNT BILL Granulocytes Absolute 4.9 1.8 - 7.8 x10E3/uL [facility] ACCOUNT BILL Lymphocytes Absolute 2.9 0.7 - 4.5 x10E3/uL [facility] ACCOUNT BILL Monocytes Absolute 0.8 0.1 - 1.0 x10E3/uL [facility] ACCOUNT BILL Eosinophils Absolute 0.2 0.0 - 0.4 x10E3/uL [facility] ACCOUNT BILL Basophils Absolute 0.1 0.0 - 0.2 x10E3/uL [facility] ACCOUNT BILL Immature Granulocytes 0 0 - 1 % [facility] ACCOUNT BILL Immature Granulocytes Absolute 0.0 0.0 - 0.1 x10E3/uL [facility] ACCOUNT BILL nRBC NOT AVAIL. [facility] ACCOUNT BILL Comment Hematology NOT AVAIL. [facility] ACCOUNT BILL BLOOD SPECIMEN / Unknown 08/13/2009 2:10 PM CDT 08/13/2009 10:27 PM CDT Narrative [facility] ACCOUNT BILL - 08/14/2009 6:14 AM CDT Additional Result Information IMMATURE CELLS ([facility]): RESULT NOT AVAILABLE NRBC ([facility]): RESULT NOT AVAILABLE HEMATOLOGY COMMENTS: BLOOD,URINE ([facility]): RESULT NOT AVAILABLE Resulting Agency Comment [facility] [address] [id number] Fausto Meza MD LAB - HEMATOLOGY ORDERABLES [facility] ACCOUNT BILL * COMPREHENSIVE METABOLIC PANEL (08/13/2009 2:10 PM CDT) [facility] Glucose 83 65 - 99 mg/dL [facility] ACCOUNT BILL BUN 17 5 - 26 mg/dL [facility] ACCOUNT BILL Creatinine 0.88 0.76 - 1.27 mg/dL [facility] ACCOUNT BILL eGFR by MDRD >59 >59 mL/min/1.7 3 [facility] ACCOUNT BILL eGFR by MDRD >59 >59 mL/min/1.7 3 [facility] ACCOUNT BILL Comment: Note: Persistent reduction for 3 months or more in an eGFR <60 mL/min/1.73 m2 defines CKD. Patients with eGFR values >/=60 mL/min/1.73 m2 may also have CKD if evidence of persistent proteinuria is present. Additional information may be found at www.kdoqi.org. BUN/Creatinine Ratio 19 8 - 27 [facility] ACCOUNT BILL Sodium 139 135 - 145 mmol/L [facility] ACCOUNT BILL Potassium 4.1 3.5 - 5.2 mmol/L [facility] ACCOUNT BILL Chloride 100 97 - 108 mmol/L [facility] ACCOUNT BILL CO2 23 20 - 32 mmol/L [facility] ACCOUNT BILL Calcium 9.6 8.7 - 10.2 mg/dL [facility] ACCOUNT BILL Protein Total 7.7 6.0 - 8.5 g/dL [facility] ACCOUNT BILL Albumin 4.8 3.5 - 5.5 g/dL [facility] ACCOUNT BILL Globulin Total 2.9 1.5 - 4.5 g/dL [facility] ACCOUNT BILL Albumin/Globulin Ratio 1.7 1.1 - 2.5 [facility] ACCOUNT BILL Bilirubin Total 0.6 0.0 - 1.2 mg/dL [facility] ACCOUNT BILL Alkaline Phosphatase 81 25 - 150 IU/L [facility] ACCOUNT BILL AST 34 0 - 40 IU/L [facility] ACCOUNT BILL ALT 43 0 - 55 IU/L [facility] ACCOUNT BILL BLOOD SPECIMEN / Unknown 08/13/2009 2:10 PM CDT 08/13/2009 10:27 PM CDT Narrative Resulting Agency Comment [facility] [address] [id number] Fausto Meza MD LAB - CHEMISTRY O RDERABLES [facility] ACCOUNT BILL * ECHOCARDIOGRAM 2D WITH DOPPLER (01/21/2009 2:03 PM TOW MOTOR DRIVER) 01/21/2009 2:[address] [facility] CARDIOLOGY - 01/22/2009 8:[address] [id number] Transthoracic Echocardiogram 2D, M-mode, Doppler, and Color Doppler Patient: REJI ESTRADA MR number: [id number] Height: 72 in Weight: 200 lb BSA: 2.13 m Study date: 21-Jan-2009 : 1980 Age: 28 years Gender: Male Race: N Referring Physician: Fausto Meza MD Wardrobe Manager: Guillermo Chew Performing Physician: Alejandro Ji MD Reading Physician: Alejandro Ji MD Summary: - Clinical question: - chest Pain - Left ventricle: - Ejection fraction was estimated to be 65 %. - Although no diagnostic regional wall motion abnormality was identified, this possibility cannot be completely excluded on the basis of this study. - Wall thickness was normal. Indications: chest Pain History: Prior history: Patient has no history of cardiovascular disease. Procedure: This was a routine study. The transthoracic approach was used. The study included complete 2D imaging, M-mode, complete spectral Doppler, and color Doppler. This was a technically difficult study. Left ventricle: Size was normal. Ejection fraction was estimated to be 65 %. Although no diagnostic regional wall motion abnormality was identified, this possibility cannot be completely excluded on the basis of this study. Wall thickness was normal. Doppler: Left ventricular diastolic function parameters were normal. Aortic valve: The valve was trileaflet. Leaflets exhibited normal thickness and normal cuspal separation. Doppler: Transaortic velocity was within the normal range. There was no stenosis. No regurgitation was evident. Aorta: The root exhibited normal size. Mitral valve: Valve structure was normal. There was normal leaflet separation. Doppler: The transmitral velocity was within the normal range. There was no evidence for stenosis. There was no regurgitation. Left atrium: Size was normal. Right ventricle: The size was normal. Systolic function was normal. Wall thickness was normal. Pulmonic valve: Leaflets exhibited normal thickness, no calcification, and normal cuspal separation. Doppler: There was no regurgitation. Tricuspid valve: The valve structure was normal. There was normal leaflet separation. Doppler: The transtricuspid velocity was within the normal range. There was no evidence for tricuspid stenosis. There was no regurgitation. Right atrium: Size was normal. Pericardium: There was no pericardial effusion. The pericardium was normal in appearance. Prepared and signed by Alejandro Ji MD Signed 22-Jan-2009 08:17:23 Procedure Note Alejandro Ji MD - 01/22/[address] [id number] Transthoracic Echocardiogram 2D, M-mode, Doppler, and Color Doppler Patient: REJI ESTRADA MR number: [id number] Height: 72 in Weight: 200 lb BSA: 2.13 m Study date: 21-Jan-2009 : 1980 Age: 28 years Gender: Male Race: N Referring Physician: Fausto Meza MD Wardrobe Manager: Guillermo Chew Performing Physician: Alejandro Ji MD Reading Physician: Alejandro Ji MD Summary: - Clinical question: - chest Pain - Left ventricle: - Ejection fraction was estimated to be 65 %. - Although no diagnostic regional wall motion abnormality was identified, this possibility cannot be completely excluded on the basis of this study. - Wall thickness was normal. Indications: chest Pain History: Prior history: Patient has no history of cardiovascular disease. Procedure: This was a routine study. The transthoracic approach was used. The study included complete 2D imaging, M-mode, complete spectral Doppler, and color Doppler. This was a technically difficult study. Left ventricle: Size was normal. Ejection fraction was estimated to be 65 %. Although no diagnostic regional wall motion abnormality was identified, this possibility cannot be completely excluded on the basis of this study. Wall thickness was normal. Doppler: Left ventricular diastolic function parameters were normal. Aortic valve: The valve was trileaflet. Leaflets exhibited normal thickness and normal cuspal separation. Doppler: Transaortic velocity was within the normal range. There was no stenosis. No regurgitation was evident. Aorta: The root exhibited normal size. Mitral valve: Valve structure was normal. There was normal leaflet separation. Doppler: The transmitral velocity was within the normal range. There was no evidence for stenosis. There was no regurgitation. Left atrium: Size was normal. Right ventricle: The size was normal. Systolic function was normal. Wall thickness was normal. Pulmonic valve: Leaflets exhibited normal thickness, no calcification, and normal cuspal separation. Doppler: There was no regurgitation. Tricuspid valve: The valve structure was normal. There was normal leaflet separation. Doppler: The transtricuspid velocity was within the normal range. There was no evidence for tricuspid stenosis. There was no regurgitation. Right atrium: Size was normal. Pericardium: There was no pericardial effusion. The pericardium was normal in appearance. Prepared and signed by Alejandro Ji MD Signed 22-Jan-2009 08:17:23 Fausto Meza MD ECHO ORDERABLES [facility] [address] [place] [address] * XR TIBIA AND FIBULA 2 VW RIGHT (01/03/2009) Anatomical Region Laterality Modality Lower Extremity Other Fausto Meza MD DIAGNOSTIC IMAGIN G ORDERABLES Care Teams Salesforce Specialist Relationship Specialty Start Date End Date Fausto Meza MD [address] [id number] PCP - General 01/16/09 Chano Hernandez MD [address] [id number] Otolaryngology 04/05/13
--- OUTSIDE RECORDS SUMMARY | 2024-04-04 09:26 | XMS_ITS | Clinical Summary ---
Author Organization [facility] Address [address] [facility] [place] [address] Care Team Providers Care Baker Bench Name Role Phone Fausto Meza MD Primary Care Provider [phone] Chano Hernandez MD Unavailable [phone] Source Comments [facility],non-owned Affiliates and Associated Physician Practices is amultiple site organization consisting of ambulatory clinics and hospital sitesin [place], [place], [place] and [place]. This disclosure is being madepursuant to the Care Everywhere program and may not contain all information available regarding this patient. 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 Pulse - - Temperature - - Respiratory Rate - - Oxygen Saturation - - Inhaled Oxygen Concentration - - Weight 104.8 kg (231 lb) 04/05/2013 2:35 PM CHIEF MARKETING OFFICER Height 181.6 cm (5' 11.5 ) 04/05/2013 2:35 PM CS T Body Mass Index 31.77 04/05/2013 2:35 PM CHIEF MARKETING OFFICER Plan of Treatment Health Maintenance Due Date Last Done Comments COLOGUARD (AGES 45-75) - COL ON CA SCREENING 1978 COLON MONITORING 1978 COLONOSCOPY - COLON CA SCREENING 1978 CT COLONOGRAPHY - COLON CA SCREENING 1978 Colorectal Cancer Screening 1978 FIT - COLON CA SCREENING 1978 FLEX SIG - COLON CA SCREENING 1978 LIPID TESTING 1978 HIV SCREENING 1993 HEPATITIS C SCREENING 10/16/1996 HEPATITIS B VACCINE (1 of 3 - 19+ 3-dose series) 1997 COVID-19 VACCINE ( - 2023-2 5 season) 2023 INFLUENZA VACCINE (#1) 2023 4, 02/22/2013 DEPRESSION SCREENING 02/28/2024 DTAP/TDAP/TD VACCINES (2 - T d or Tdap) 07/25/2024 07/25/2014 ZOSTER VACCINE (1 of 2) 2028 HIB VACCINE Aged Out No longer eligi ble based on patient's age to complete this topic HPV VACCINE Aged Out No longer eligi ble based on patient's age to complete this topic MENINGOCOCCAL (Group B) VACCINE Aged Out No longer eligible b ased on patient's age to complete this topic MENINGOCOCCAL VACCINE Aged Out No lilliana fern eligible based on patient's age to complete this topic PNEUMOCOCCAL VACCINE Aged Out No long er eligible based on patient's age to complete this topic Advance Directives Documents on File Type Date Recorded Patient Inpatient Nursing Aide Expl anation Adv Directive/Living Will/POA 10/14/2008 Care Teams Baker Bench Relationship Specialty Start Date End Date Fausto Meza MD [address] [address] PCP - General 01/16/09 Chano Hernandez MD [address] [address] Otolaryngology 04/05/13
[2024-04-29 10:05] VITALS: BMI 31.8
--- NOTE | 2024-04-29 10:05 | WPDSLEEPSTUD ---
Sleep Study Date of Study: 04/04/24 Ordering Provider: Toño Ambrocio MD Interpreting Physician: Jazmine Mills DO Sleep Study Type: CPAP Titration Height: 1.83 m Weight: 106.594 kg Body Mass Index: 31.8 Neck Circumference (inches): 16 [place]: 7 Reason for Sleep Study WatchPAT home sleep test on 02/13/2024 showed an overall AHI of 58.1 with desaturation down to 83%. Sleep History The patient is a 43-year-old male that had a sleep study ordered by her primary care for evaluation of sleep apnea. The patient admits to snoring loudly, excessive daytime sleepiness, interruptions in breathing while asleep and trouble maintaining sleep. The patient denies choking or gasping. The patient denies having trouble breathing on his back. The patient does have morning headaches. The patient denies having a dry or sore mouth/ throat in the morning. He denies nocturnal heartburn. He denies nocturia. He denies having trouble falling asleep. He denies having difficulty returning to sleep if he wakes up throughout the night. He denies any hypnotic or sedative use. He denies feeling anxious about sleep. He does feel tired or sleepy during the day. He does feel tired in the morning. He does have the urge to fall asleep during the day. He denies feeling drowsy while driving. He denies sleep paralysis, cataplexy and hypnagogic / hypnopompic hallucinations. He denies clenching or grinding his teeth. He denies kicking or jerking his legs excessively. He denies having a restless feeling in his legs. He goes to bed at 10:00 p.m. on work days and 11:00 p.m. on his days off. It takes him 15 minutes to fall asleep. He gets 7-1/2 hours of sleep on work days and 9-1/2 hours of sleep on days off. His sleep is much more restorative on his days off. He denies taking any planned naps. He denies dream enactment behavior. He denies sleep walking. He denies consuming any caffeinated beverages throughout the day. He denies tobacco and alcohol use. He denies exercising on a regular basis. FORMERLY [facility] Past Medical History Medical History Heel pain Libido, decreased Preventative health care Social History Social History Smoking status: Never smoker Alcohol intake: never Substance use: never Substance use type: does not use Living arrangements: with family Occupation/Education: occupation Gender identity (if verbalized by the patient): Male Sexual Orientation (if Verbalized by the Patient): Straight or Heterosexual Spiritual care concerns: No Agree to blood products: Yes Medications Home Medications ?Medication ?Instructions ?Recorded ?Confirmed ?Type cetirizine 10 mg tablet (Zyrtec) 10 mg PO DAILY 02/16/23 12/06/23 History triamcinolone acetonide 55 mcg 2 spray intranasal DAILY 02/16/23 12/06/23 History nasal spray aerosol (Nasacort Allergy) betamethasone dipropionate 0.05 % 1 applic topical BID PRN rash #45 08/03/23 12/06/23 Rx topical ointment grams citalopram 10 mg tablet 10 mg PO DAILY #90 tabs 03/06/24 Rx citalopram 20 mg tablet 20 mg PO DAILY #90 tabs 03/06/24 Rx zolpidem 10 mg tablet (Ambien) 10 mg PO ONCE #1 tablet 04/04/24 Rx Sleep Procedure A full night CPAP Titration using the YongChe multi-channel system recorded the standard physiologic parameters including EEG, EOG, submentalis EMG, anterior tibialis EMG, EKG, body position, nasal and oral airflow using nasal pressure sensor and thermistor.? Respiratory parameters of chest and abdominal movements were recorded with Respiratory Inductance Plethysmography belts. Oxygen saturation was recorded by pulse oximetry. Video monitoring was also performed. Sleep stages, periodic limb movements, and EEG arousals were scored in 30 second epochs according to the criteria of the AASM Scoring Manual. The Apnea-Hypopnea Index was calculated using CMS guidelines for definition of hypopnea with 4% O2 desaturations while scoring respiratory events. Sleep Architecture The total recording time was 494.9 minutes.? The total sleep time was 440.5 minutes. Sleep latency was 9.3 minutes. REM latency was 134.0 minutes. Sleep efficiency was 89.0%. The patient had 35 awakenings for an awakening index of 4.8. Wake after Sleep Onset time was 45.5 minutes. The patient spent 36.0 minutes, 8.2% of total sleep time in Stage N1. The patient spent 219.5 minutes, 49.8% in Stage N2. The patient spent 65.0 minutes, 14.8% in Stage N3. The patient spent 120.0 minutes, 27.2% in Stage REM. Respiratory Analysis The patient had 18 hypopneas, 4 obstructive apneas for an overall Apnea Hypopnea Index of 3.0 events per hour. The REM Apnea Hypopnea Index was 0. The NREM Apnea Hypopnea Index was 4.1. The patient had a Central Apnea Hypopnea Index of 0. There was no evidence of Yehuda-Bai Respirations. The patient was started on CPAP 7 cm H2O and titrated to CPAP 10 cm H2O due to obstructive apneas and hypopneas. The patient was able to fall asleep starting on CPAP 7 cm H2O. The patient was able to achieve REM sleep starting CPAP 8 cm H2O. The patient was able to achieve a residual AHI less than 5 with both NREM and REM sleep in the supine position on the final pressure setting. On CPAP 10 cm H2O, the patient spent 82 minutes in NREM and 109.5 minutes in REM sleep with 1 obstructive apnea and 2 hypopneas, resulting in an AHI of 0.9. The patient had a sleep efficiency of 95.3% on this pressure setting. Arousals There were 96 total arousals for an arousal index of 13.1. There were 51 spontaneous arousals for an index of 6.9. ?There were 18 arousals due to respiratory events for an index of 2.5. There were 19 arousals due to periodic limb movements for an index of 2.6.? There were 8 arousals due to isolated limb movements for an index of 1.1. Periodic Limb Movements The patient had 54 isolated limb movements with an index of 7.4. The patient had 280 periodic limb movements with index of 38.1, which is elevated (normal < 15). Patient had a total of 334 limb movements with a total limb movement index of 45.5. Oximetry Data The patient had an average oxygen saturation of 94.8% in sleep with a minimum oxygen saturation of 90.0% and a maximum oxygen saturation of 99.0%. The patient had 28 oxygen desaturations that were 4% or greater resulting in an Oxygen Desaturation Index of 3.8.? The patient spent 0 minutes of total sleep time with an oxygen saturation below 88%. Snoring Profile Mild snoring was present in the beginning of the study. The snoring resolved once the patient was titrated to CPAP 10 cm H2O. Cardiac Profile The EKG showed normal sinus rhythm. No arrhythmias or premature beats were seen. The patient had an average pulse rate of 70.8 bpm with a minimum pulse rate of 60.0 bpm and a maximum pulse rate of 95.0 bpm. ? EEG Profile No signs of seizure activity seen. Assessment and Plan Assessment and Plan (1) PETRA (obstructive sleep apnea): Code(s): G47.33 - Obstructive sleep apnea (adult) (pediatric) Status: Acute Assessment and Plan: The patient was started on CPAP 7 cm H2O and titrated to CPAP 10 cm H2O due to obstructive apneas and hypopneas. The patient's sleep apnea resolved on the final pressure setting with a high sleep efficiency. I recommend that the patient be prescribed Resmed CPAP 10 cm H2O, size medium Resmed N30i nasal mask, CPAP filters/tubing and heated humidity. This should be used with all episodes of sleep.? Compliance should be reviewed within 31-90 days of starting therapy for usage greater than 4 hours per night greater than 70% of the nights. The patient should be asked about symptoms such as?excessive daytime sleepiness, quality of sleep, decreased nocturia, increased?mental functioning such as memory, mood, and concentration. The patient had a significant number of limb movements during the study with the majority being periodic in nature. The patient's sleep history does not suggest Restless Leg Syndrome. Leg movements can be seen when a patient is initially started on CPAP therapy. This is known as CPAP kick. This usually resolves on its own with the first few months. I recommend asking the patient about leg movements at his first CPAP Compliance visit. Data The data obtained during this sleep study is adequate for interpretation. Certification This sleep study has been reviewed by a board certified sleep medicine physician.
== END 2024-04-05 06:55 | disposition home or self-care (01) ==
LOC: ANHCSM 09:15
PROVIDERS: PCP Family Medicine; Visit Provider Family Medicine
DX: G47.33 Obstructive sleep apnea (adult) (pediatric) (principal)
CPT/HCPCS: 95811

== ENCOUNTER 2024-04-06 08:13 | Outpatient (CLI) | payer OTHER, SELFPAY ==
--- OUTSIDE RECORDS SUMMARY | 2024-04-06 08:16 | XMS_ITS | Continuity of Care Document ---
Author Organization [facility] Address [address] [place] [address] Phone Care Team Providers Care Director Of Supply Chain Name Role Phone Long OD, Amrik Unavailable Unavailable Procedures Procedure Date Eye Exam & Treatment Refraction SV Poly Carb Sph [place] To +/- 4 009 No Charge Glasses Check SV Poly Carb Sph +/- 7.12 To +/- 20 D Ju Frames Deluxe Anti-reflective Coating Sales Tax Eye Exam & Treatment Refraction No Charge Contact Lens Check Contact Lens Fitting SV Poly Carb Sph [place] To +/- 4 007 Vision Svcs Frames Purchases Tax - Medical Advance Directives Directive Yes / No Effective Date File Name No Information Encounters Encounter Description Practice Location Reason(s) For Visit Diagnoses Date Provider Providers Copied on Encounter [facility], [address], [place], [place], [address], [place] tel:[phone] [facility] No Information 8201 0 Long OD Amrik. [address] , [address], [place], [address], [place]. tel:[phone] [facility], [address], [place], [place], [address], [place] tel:[phone] [facility] No Information [address] [employer] . [address] [facility] [address] [facility], [address], [place], [place], [address], . tel:[phone] Referring Provider: Amrik Long OD A, [address], [place], [address]. tel:[phone] [facility], [address], [place], [place], [address], [place] tel:[phone] [facility] No Information 2 4-200 9 Long OD Amrik. [address], [address], [place], [place], [facility], [place]. tel:[phone] [facility], [address], [place], [place], [address], [place] tel:[phone] [facility] No Information [address] [employer] . [address] [facility], [address], [place], [place], [address], [place]. tel:[phone] Consulting Provider: Ale Carrillo, [address] [place], [place], [facility]. tel:[phone] [facility], [address], [place], [place], [address], [place] tel:[phone] [facility] No Information 0 2-200 9 Long OD Amrik. [address] , [address], [place], [address], [place]. tel:[phone] [facility], [address], [place], [place], [address], [place] tel:[phone] [facility] No Information 2-200 7 Long OD Amrik. [address], [address], [place], [address], [place]. tel:[phone] [facility], [address], [place], [place], [address], [place] tel:[phone] [facility] No Information May-0 1-200 7 Long OD Amrik. [address] [facility] [address] , [address], [place], [address], . tel:[phone] [facility], [address], [place], [place], [address], [place] tel:[phone] [facility] No Information Apr-2 6-200 7 [employer] . [address] [facility] [address] [facility], [address], [place], [place], [address], [place]. tel:[phone] Referring Provider: Amrik Long OD A, [address], [place], [address]. tel:[phone] g Provider: Mignon Barney, [address] [place] [address], [address]. tel:[phone] Family History Family Member Type Diagnosis Age At Onset No Information Payers Payer name Insurance type Covered republican ID Florencio aranda(s) [facility] CI [id number] Social History Type Description Quantity Date Captured [...]
--- OUTSIDE RECORDS SUMMARY | 2024-04-06 08:16 | XMS_ITS | Encounter Summary ---
Author Organization [facility] Address [address] [place] [address] Care Team Providers Care Process Excellence Manager Name Role Phone Fausto Meza MD Primary Care Provider [phone] Chano Hernandez MD Unavailable Reason for Referral * Sleep (Routine) - Closed Specialty Diagnoses / Procedures Referred By Jenny mcclain Referred To Contact Sleep Center Diagnoses Central sleep apnea Procedures HOME SLEEP STUDY Ariela Valadez APRN-CNP [address] [place] [address] [facility] Home Sleep Study [address] [place] [address] Referral ID Status Reason Start Date Expiration Date Visits Re quested Visits Authorized [id number] Closed 12/29/2023 12/28/2024 1 1 Encounter Details Date Type Department Care Team (Late st Contact Info) Description 12/29/2023 Transcribe Orders [facility] Health Sleep Services [address] [place] [address] Ariela Valadez APRN-CNP [address] [place] [address] Central sleep apnea Social History [...] apnea documented in this encounter Care Teams Process Excellence Manager Relationship Specialty Start Date End Date Fausto Meza MD [address] [address] PCP - General 01/16/09 Chano Hernandez MD [address] [address] Otolaryngology 04/05/13 documented as of this encounter
--- OUTSIDE RECORDS SUMMARY | 2024-04-06 08:16 | XMS_ITS | Patient Health Summary ---
Author Organization [facility] Address [address] [facility] [place] [address] Care Team Providers Care Registered Mail Clerk Name Role Phone Fausto Meza MD Primary Care Provider [phone] Chano Hernandez MD Unavailable [phone] Note from [facility],non-owned Affiliates and Associated Physician Practices is amultiple site organization consisting of ambulatory clinics and hospital sitesin [place], [place], [place] and [place]. This disclosure is being madepursuant to the Care Everywhere program and may not contain all information available regarding this patient. Last updated 17.[facility] Allergies * Azelastine Hydrochloride * Levaquin(Throat swells) [...] Comments Blood Pressure 112/60 04/05/2013 2:35 PM MANAGER LOCATION Pulse - - Temperature - - Respiratory Rate - - Oxygen Saturation - - Inhaled Oxygen Concentration - - Weight 104.8 kg (231 lb) 04/05/2013 2:35 PM MANAGER LOCATION Height 181.6 cm (5' 11.5 ) 04/05/2013 2:35 PM CS T Body Mass Index 31.77 04/05/2013 2:35 PM MANAGER LOCATION Procedures * CULTURE RESPIRATORY+GRAM STAIN (STL)(Performed 11/24/2014) [...] lactamase negative)(A) ADITHYA 11/27/2014 7:12 AM CDT [facility] MICROBIOLOGY Culture Rare growth Staphylococcus species (Coagulase Negative)(A) ADITHYA 11/27/2014 7:12 AM CDT [facility] MICRO[facility]OLOG[facility] Gram Stain Moderate White blood cells 11/27/2014 7:12 AM CDT [facility]CRO[facility] Gram Stain Moderate Gram negative bacilli 11/27/2014 7:12 AM CDT [facility]CRO[facility]OLOG[facility] Gram Stain Rare Epithelial cells 11/27/2014 7:12 AM CDT [facility] MICRO[facility]OLOG[facility] Gram Stain Light Red blood cells 11/27/2014 7:12 AM CDT [facility] MICRO[facility]OLOG[facility] Microbiology SINUS / Unknown Collection / Unknown 11/24/2014 2:15 PM CDT 11/24/2014 6:02 PM CDT Chano Hernandez MD LAB - MICROBIOLOG Y ORDERABLES [facility] MICROBIOLOGY [address] [place], [place] [address], [facility] [phone] * (ABNORMAL) STREP A SCREEN - POINT OF CARE (AMB) (04/05/2013 3:10 PM MANAGER LOCATION) Strep A Rapid POCT Positive( A) Negative [...] DIPSTICK AUTO (08/13/2009 2:11 PM CDT) Specific [place] UA 1.027 1.005 - 1.030 [facility] ACCOUNT [...] 10:30 PM CDT Narrative Resulting Agency Comment [facility] [id number] Fausto Meza MD LAB - URINALYSIS ORDERABLES Performing Organization Address City/[facility] Co de Phone Number [facility] ACCOUNT BILL [...] 10:27 PM CDT Narrative Resulting Agency [facility] [address] [place] [id number] Fausto Meza MD LAB - CHEMISTRY O RDERABLES Performing Organization Address [facility] de Phone Number [facility] ACCOUNT BILL * [...] RESULT NOT AVAILABLE Resulting Agency Comment [facility] [address] [id number] Fausto Meza MD LAB - HEMATOLOGY ORDERABLES [facility] ACCOUNT BILL * COMPREHENSIVE METABOLIC PANEL (08/13/2009 2:10 PM CDT) [facility] Signature Glucose 83 65 - 99 mg/dL [...] PM CDT Narrative Resulting Agency Comment [facility] [address] [id number] Fausto Meza MD LAB - CHEMISTRY O RDERABLES [facility] ACCOUNT BILL * ECHOCARDIOGRAM 2D WITH DOPPLER (01/21/2009 2:03 PM MANAGER LOCATION) 01/21/2009 2:03 PM [facility] CARDIOLOGY - 01/22/2009 8:[address] [id number] Transthoracic Echocardiogram 2D, M-mode, Doppler, and Color Doppler Patient: REJI ESTRADA MR number: [id number] Height: 72 in Weight: 200 lb BSA: 2.13 m Study date: 21-Jan-2009 : 1980 Age: 28 years Gender: Male Race: N Referring Physician: Fausto Meza MD Freight Car Cleaner: Guillermo Chew Performing Physician: Alejandro Ji MD [...] Procedure Note Alejandro Ji MD - 01/22/[address] [id number] Transthoracic Echocardiogram 2D, M-mode, Doppler, and Color Doppler Patient: REJI ESTRADA MR number: [id number] Height: 72 in Weight: 200 lb BSA: 2.13 m Study date: 21-Jan-2009 : 1980 Age: 28 years Gender: Male Race: N Referring Physician: Fausto Meza MD Freight Car Cleaner: Guillermo Chew Performing Physician: Alejandro Ji MD [...] 22-Jan-2009 08:17:23 Fausto Meza MD ECHO ORDERABLES [facility] [address] [place] [address] * XR TIBIA AND FIBULA 2 VW RIGHT (01/03/2009) Anatomical Region Laterality Modality Lower Extremity Other Fausto Meza MD DIAGNOSTIC IMAGIN G ORDERABLES Care Teams Registered Mail Clerk Relationship Specialty Start Date End Date Fausto Meza MD [address] [id number] PCP - General 01/16/09 Chano Hernandez MD [address] [id number] Otolaryngology 04/05/13
--- OUTSIDE RECORDS SUMMARY | 2024-04-06 08:16 | XMS_ITS | Encounter Summary ---
Author Organization [facility] Address [address] [place] [address] Phone Care Team Providers Care Roll Up Machine Operator Name Role Phone Fausto Meza MD Primary Care Provider + Encounter Details Date Type Department Care Team (Late st Contact Info) Description 06/26/2017 Orders Only [facility] ProviderRosio MD [facility] [place] [address] Social History Tobacco Use Types Packs/Day Years Used Date Smoking Tobacco: Never Smokeless Tobacco: Never Alcohol Use Standard Drinks/Week Comments No 0 (1 standard drink = 0.6 oz pur e alcohol) Sex and Gender Information Value Date Recorded Sex Assigned at Not on file Legal Sex Male 9:17 PM FURNITURE STAINER Gender Identity Male 09/13/2019 9:52 AM CDT [...] on filedocumented in this encounter Care Teams Roll Up Machine Operator Relationship Specialty Start Date End Date Fausto Meza MD [address] [facility] [address] [address] PCP - General 05/27/16 documented as of this encounter
--- OUTSIDE RECORDS SUMMARY | 2024-04-06 08:17 | XMS_ITS | Clinical Summary ---
Author Organization [facility] Address [address] [facility] [address] [place] [address] Phone Care Team Providers Care Community Development Aide Name Role Phone Fausto Meza MD Primary [...] day as needed for heartburn Active multivit djeucuvd-awsf-Q A-calcium (THERA-M) 9 mg iron-400 mcg tabletIndicatio ns:Vitamin Deficiency Prevention Take 1 tablet by mouth daily Active omega 8-eve-uvw-fish oil (Fish OiL) 100-160-1,000 mg capsule Take [...] 02/23/2021 Assessment & Plan (02/23/2021 11:24 AM ENVIRONMENTAL GEOLOGIST): Worsening - Patient is symptomatic Urine dip was negative this time as well as the beginning of January Placed on Levaquin for 14 days Referral to urology Controlled type 2 diabetes m ellitus without complication, without long-term current use of insulin ([facility]) 08/16/2019 Obstructive sleep apnea 09/13/2018 BMI 31.0-31.9,adult [...] Comments Hx Other Medical rhinoplasty; Co mments: [facility] 02/12/2015 - Multiple environmental allergies Allergies, environmental; Comments: [facility] 02/12/2015 - Diabetes ([facility]) PETRA (obstructive sleep apnea) Family History Medical [...] on file Legal Sex Male 9:17 PM ENVIRONMENTAL GEOLOGIST Gender Identity Male 09/13/2019 9:52 AM CDT [...] HEMOGLOBIN A1C Routine 04/06/2022 3 :55 PM ENVIRONMENTAL GEOLOGIST Controlled type 2 diabetes mellitus without complication, without long-term current use of insulin (CMS/[facility]) (HCC) EGFR Routine 04/06/2022 3:32 PM ENVIRONMENTAL GEOLOGIST Annual physical exam LIPID PANEL Routine 04/06/2022 3:32 PM ENVIRONMENTAL GEOLOGIST Annual physical exam ALBUMIN CREATININE RATIO, URINE Routine 04/06/2022 3:32 PM ENVIRONMENTAL GEOLOGIST Controlled type 2 diabetes mellitus without complication, without long-term current use of insulin (CMS/HCC) (HCC) DIABETIC EYE EXAM Routine 09/10/2019 COLONOSCOPY REPORT 02/24/2015 from Last 3 Months or Most Recently Relevant to Health Maintenance Results * POCT hemoglobin A1c (04/06/2022 3:55 PM ENVIRONMENTAL GEOLOGIST) Hemoglobin A1C, POC 5.8 % Blood 04/06/2022 3:55 PM ENVIRONMENTAL GEOLOGIST us Fausto Meza MD POINT OF CARE TEST ORDER JO Final Result * eGFR (04/06/2022 3:32 PM ENVIRONMENTAL GEOLOGIST) eGFR 98 mL/min/1. 73 m2 [facility] Comment: Interpretive Data Reference Interval Normal [...] last reviewed 2020. Blood 04/06/2022 3:32 PM ENVIRONMENTAL GEOLOGIST 04/06/2022 6:08 PM ENVIRONMENTAL GEOLOGIST Fausto Meza MD LAB BLOOD ORDERABLES Fin al Result Performing Organization Address [facility] Co de Phone Number [facility] [address] [facility] [place] [address] * Albumin Creatinine Ratio, Urine (04/06/2022 3:32 PM ENVIRONMENTAL GEOLOGIST) Albumin Ur <12.0 mg/L [facility] Comment: Interpretive Data No reference range established. Current interpretive data was last revised 2018. Creatinine Ur 132.4 mg/dL [facility] Comment: Interpretive Data No reference range established. Current interpretive data was last revised 2018. Albumin Creatinine Ratio, Ur <9 1 - 29 mg/g [facility] Urine 04/06/2022 3:32 PM ENVIRONMENTAL GEOLOGIST 04/06/2022 6:08 PM ENVIRONMENTAL GEOLOGIST us Fausto Meza MD LAB URINE ORDERABLES Fin al Result Performing Organization Address [facility]/ZIP Co de Phone Number [facility] [address] [place] [address] * (ABNORMAL) Lipid panel (04/06/2022 3:32 PM ENVIRONMENTAL GEOLOGIST) Cholesterol 237(H) 30 - 199 mg/dL [facility] Comment: Interpretive Data Ages < or = [...] revised on 2017. Triglycerides 275(H) <=149 mg/dL [facility] Comment: Interpretive Data Ages < or = [...] revised on 2017. HDL 57 >=40 mg/dL [facility] Comment: Interpretive Data Ages < or = [...] on 2017. LDL, calculated 125 <=129 mg/dL [facility] Comment: Interpretive Data Ages < or = [...] revised on 2017. Non-HDL Cholesterol 180 mg/dL [facility] Comment: Interpretive Data Ages < or = [...] last revised on 2017. Chol/HDL ratio 4 [facility] Blood 04/06/2022 3:32 PM ENVIRONMENTAL GEOLOGIST 04/06/2022 6:08 PM ENVIRONMENTAL GEOLOGIST us Fausto Meza MD LAB BLOOD ORDERABLES Fin al Result [facility] [address] [place] [address] * Diabetic Eye Exam (09/10/2019) us Historical Provider HEALTH MAINTENANCE Final Result * COLONOSCOPY REPORT (02/24/2015) Anatomical Region Laterality Modality Other Narrative 02/24/2015 Ordered by an unspecified provider. Historical Provider GI PROCEDURE ORDERABLES F inal Result from Last 3 Months or Most Recently Relevant to Health Maintenance Insurance [facility] CHOICE PLUS [id number] CHOICE PLUS CHOICE PLUS Care Teams Community Development Aide Relationship Specialty Start Date End Date Fausto Meza MD [address] [facility] [address], [place] [address] PCP - General 05/27/16
--- OUTSIDE RECORDS SUMMARY | 2024-04-06 08:17 | XMS_ITS | Clinical Summary ---
Author Organization [email or web address] Address [address] [facility] [place] [address] Care Team Providers Care Organizational Research Consultant Name Role Phone Fausto Meza MD Primary Care Provider [phone] Chano Hernandez MD Unavailable [phone] Source Comments [facility],non-owned Affiliates and Associated Physician Practices is amultiple site organization consisting of ambulatory clinics and hospital sitesin [place], [place], [place] and [place]. This disclosure is being madepursuant to the Care Everywhere program and may not contain all information available regarding this patient. Last updated 17.[email or web address] Allergies Active Allergy Reactions Criticality Noted Date [...] Comments Blood Pressure 112/60 04/05/2013 2:35 PM INDEPENDENT MARKETING CONSULTANT Pulse - - Temperature - - Respiratory Rate - - Oxygen Saturation - - Inhaled Oxygen Concentration - - Weight 104.8 kg (231 lb) 04/05/2013 2:35 PM INDEPENDENT MARKETING CONSULTANT Height 181.6 cm (5' 11.5 ) 04/05/2013 2:35 PM CS T Body Mass Index 31.77 04/05/2013 2:35 PM INDEPENDENT MARKETING CONSULTANT Plan of Treatment Health Maintenance Due Date [...] Documents on File Type Date Recorded Patient [employer] Expl anation Adv Directive/Living Will/POA 10/14/2008 Care Teams Organizational Research Consultant Relationship Specialty Start Date End Date Fausto Meza MD [address] [address] PCP - General 01/16/09 Chano Hernandez MD [address] [address] Otolaryngology 04/05/13
--- OUTSIDE RECORDS SUMMARY | 2024-04-06 08:17 | XMS_ITS | Patient Health Record ---
Author Organization [facility] [employer] Address [address] [place] [address] Care Team Providers Care Windshield Repair Technician Name Role Phone Brea Goins Unavailable [phone] Allergies Allergen (clinical drug ingredient) Drug/Non Drug Allergy documented on EMR Reaction Allergy Type Onset Date Status azelastine Azelastine HCl Unknown Drug Allergy A ctive levofloxacin Levofloxacin Unknown Drug Allergy A ctive Substance with sulfonamide structure and antibacterial mechanism of action (substance) Sulfa Antibiotics Unknown Drug Allergy Active Results Component Value Reference Range Notes UDT Reviewed date:09/18/2023 10:25:41 AM Interpretation: Performing Lab: Notes/Report: THC N 0 - 50 ng/ml Cocaine N 0 - 300 ng/ml Amphetamine N 0 - 1000 ng/ml Buprenorphine (BUP) N 0 - 10 ng/ml Secobarbital (Bar) N 0 - 300 ng/ml Oxazepam (BZO) N 0 - 300 ng/ml 6-xoxertdmwa-5,6-jplzvetv-2,3-diphenylpyrrolidine (APRYL P) N 0 - 300 ng/ml Methamphetamine (MET) N 0 - 1000 ng/ml Methylenedioxymethamphetamine (MDMA) N 0 - 500 ng/ml Morphine (MOP 300/[id number]) N 0 - 300 ng/ml Methadone (MTD) N 0 - 300 ng/ml Phencyclidine (PCP) N 0 - 25 ng/ml Propoxyphene (PPX) N 0 - 300 ng/ml Nortriptyline (TCA) N 0 - 1000 ng/ml Oxycodone N 0 - 300 ng/ml Reason For Referral No Information Medications Medication SIG (Take, Route, Frequency, Duration) Notes Start Date End Date Status Nasacort Allergy 24HR 55 MCG/ACT 1 spray in each nostril Nasally Once a day Active ZyrTEC Allergy 10 MG 1 capsule Orally Once a day Active Citalopram Hydrobromide 30 MG 1 capsule Orally Once a day for 30 days d/c Buspar D/C Trintellix 11/02/2023 Active Social History Tobacco Use: Social History Observation Description Date Details (start date - stop date) Never Smoker NA - NA Sex Assigned At : Social History Observation Description Sex Assigned At Male Household Question Answer Notes Marital status: Number of adults in household: 2 Number of children in household: 1 son Sexual History Question Answer Notes Had sex in the past 12 months (vaginal, oral, or anal)? Yes with Women only Tobacco Control (Standard) Question Answer Notes Tobacco use: Nonsmoker AUDIT-C (Standard) Question Answer Notes Did you have a drink containing alcohol in the p ast year? No Interpretation Positive Problems Problem Type SNOMED Code ICD Code Onset Dates Problem Status W/U Status Risk Notes Problem 44779862 POLLY (generalized anxiety disorder) (F41.1) Active confirmed Problem [id number] Other obsessive-compu lsive disorders (F42.8) Active confirmed Vital Signs Heart Rate 85 /min 09/18/2023 Respiratory Rate 18 /min 11/02/2023 Height-cm 182.88 cm 11/02/2023 Blood pressure diastolic 79 mm Hg 09/18/2023 Weight-kg 107.95 kg 11/02/2023 Height 72 in 11/02/2023 Blood pressure systolic 119 mm Hg 09/18/2023 Weight 238 lbs 11/02/2023 BMI 32.28 kg/m2 11/02/2023 Encounters Encounter Location Date Provider Diagnosis [facility] [place] [address] [address] [facility] [address] [address] 09/18/2023 Brea Goins POLLY (generalized anxiety disorder) F41.1 [facility] [address] [address] 11/02/2023 Brea Goins POLLY (generalized anxiety disorder) F41.1 and Other obsessive-compulsive disorders F42.8 Assessments Encounter Date Diagnosis (ICD Code) Assessment Notes Treatment Notes Treatment Clinical Notes Section Notes 09/18/2023 POLLY (generalized anxiety disorder) (ICD-10 - F41.1) Learning About Generalized Anxiety Disorder material was published, Generalized Anxiety Disorder: Care Instructions material was published, Learning About Anxiety Disorders material was published 11/02/2023 POLLY (generalized anxiety disorder) (ICD-10 - F41.1) Learning About Generalized Anxiety Disorder material was published, Generalized Anxiety Disorder: Care Instructions material was published, Learning About Anxiety Disorders material was published anxiety- stable Celexa 30 mg daily OCD- Celexa 30 mg daily educated on all medications, benefits, side effects and risk, and educated on depression, anxiety, and ADHD, mood d/o and educated on compliance of medications, metabolic and movement d/o education appointment is, continue therapy discussion with patient about course of treatment and patient instructions. education on serotonin syndrome SSRI/SNRI side effects discussed including but not limited to, gastric upset, nausea, vomiting, diarrhea and/or constipation, weight changes, sexual side effects including loss of libido, increased suicidal thoughts/behavio rs in children and young adults, and serotonin syndrome. Medication Management and Follow-Up - Plan: - Schedule follow-up appointments every 1-3 months to monitor the patient's response to the medication regimen. - Reinforce the importance of avoiding recreational drug use due to potential neurotoxicity and interactions with prescribed medications. 11/02/2023 Other obsessive-com pulsive disorders (ICD-10 - F42.8) anxiety- stable Celexa 30 mg daily OCD- Celexa 30 mg daily educated on all medications, benefits, side effects and risk, and educated on depression, anxiety, and ADHD, mood d/o and educated on compliance of medications, metabolic and movement d/o education appointment is, continue therapy discussion with patient about course of treatment and patient instructions. education on serotonin syndrome SSRI/SNRI side effects discussed including but not limited to, gastric upset, nausea, vomiting, diarrhea and/or constipation, weight changes, sexual side effects including loss of libido, increased suicidal thoughts/behavio rs in children and young adults, and serotonin syndrome. Medication Management and Follow-Up - Plan: - Schedule follow-up appointments every 1-3 months to monitor the patient's response to the medication regimen. - Reinforce the importance of avoiding recreational drug use due to potential neurotoxicity and interactions with prescribed medications. 09/18/2023 Other POLLY- Patient is on Buspar 5 mg daily tapering off will stop Buspar r/t has s/e related to Buspar and improved with tapering off rx Celexa 20 mg daily - patient reported sexual issues and Testetrone level low normal range per patient labs done by PCP discuss rx and options with less sexual s/e decrease Celexa 10 mg daily for 2 weeks then stop - r/t sexual s/e (no refill neeed has Celexa 10 mg at home) Will add Trintellix 5 mg daily for 2 weeks then increase Trintellix 10 mg daily- samples given and co- pay card r/o OCD - obessive with hobbies https://www.nim.n ih.gov/health/topi cs/bmcatx-lsoggh-p edications https://www.tim.o rg/Fiqjd-Zbaczs-Fd lness/Treatments/M imbzs-Qhqpsl-Mhlqn ations Recommend decrease/stop cannabis use as it may be negatively impacting mood, motivation, anxiety, sleep, focus; can also contribute to development of psychosis Patient educated on all medications including potential benefits, side effects, risks. Educated on proper dosing schedule and importance of compliance Discussed and educated pt regarding benzodiazepines are generally not intended for prolonged use and that use can cause tolerance, dependence, depression, and associated memory issues including dementias (this list is not exhaustive). Benzodiazepine use is generally not recommended concurrently with pain medications and/or other controlled substances educated on all medications, benefits, side effects and risk, and educated on depression, anxiety, and ADHD, mood d/o and educated on compliance of medications, metabolic and movement d/o education appointment is, continue therapy discussion with patient about course of treatment and patient instructions. education on serotonin syndrome SSRI/SNRI side effects discussed including but not limited to, gastric upset, nausea, vomiting, diarrhea and/or constipation, weight changes, sexual side effects including loss of libido, increased suicidal thoughts/behaviors in children and young adults, and serotonin syndrome. Second generation antipsychotics (SGAs) have metabolic syndrome issues with weight gain, increase in prolactin, increased waist circumference, increased lipids, and increased glucose. Thus routine monitoring of weight, metabolic labs, etc. is indicated. A general rank ordering of antipsychotics that have the greatest to the least risk of metabolic effects is olanzapine, quetiapine, risperidone, ziprasidone, and aripiprazole. However, weight gain can occur with all of these drugs and considerable variability exists among patients receiving the same drug regarding the risk of metabolic effects. Anti-psychotic agents not only increase the risk of metabolic disorder, they also increase the risk of CVA, akathisia, and movement disorders including EPS or tardive dyskinesia (more common with first generation antipsychotics) and more. Medication Management and Follow-Up - Plan: - Schedule follow-up appointments every 1-3 months to monitor the patient's response to the medication regimen. - Reinforce the importance of avoiding recreational drug use due to potential neurotoxicity and interactions with prescribed medications. , Learning About Low-Fat Eating material was published, Body Mass Index: Care Instructions material was published, Learning About Low-Carbohydrate Diets material was published, Learning About Low-Carbohydrate Foods material was published, Learning About Carbohydrate (Carb) Counting and Eating Out When You Have Diabetes material was published, Counting Carbohydrates for Diabetes: Care Instructions material was published, Heart-Healthy Diet: Care Instructions material was published, Vortioxetine Oral Tablet (VORTIOXETINE - ORAL) material was published Plan Of Treatment No Information Insurance Providers Payer Name Payer Address Payer Phone Subscriber Number Group Number Insured Name Patient Relationship to Insured Coverage Start Date Coverage End Date [facility] [address] [place] [address] [id number] Reji Estrada Self - patient is the insured Medical (General) History Medical History History ICD Code Past Psychiatric History: Anxiety Disord er abdominal aortic aneurysm: No atrial fibrillation: No chronic fatigue syndrome: No essential tremor: No hyperlipidemia: No hypertension: No Parkinson's disease: No restless leg syndrome: No stroke: No subdural hematoma: No type 1 diabetes mellitus: No type 2 diabetes mellitus: No vitamin B12 deficiency: No vitamin D deficiency: No Surgical History Surgery Date(Month/Year) Sinus Cavity Surgery [place] teeth removal Septoloplasty
--- OUTSIDE RECORDS SUMMARY | 2024-04-06 08:17 | XMS_ITS | Referral Summary ---
Author Organization [facility] Address [address] [place] [address] Care Team Providers Care Entry Level Name Role Phone Fausto Meza MD Primary Care Provider [phone] Chano Hernandez MD Unavailable [phone] Source Comments [facility],non-owned Affiliates and Associated Physician Practices is amultiple site organization consisting of ambulatory clinics and hospital sitesin [place], [place], [place] and [place]. This disclosure is being madepursuant to the Care Everywhere program and may not contain all information available regarding this patient. 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
--- OUTSIDE RECORDS SUMMARY | 2024-04-06 08:17 | XMS_ITS ---
Author Organization [facility] [employer] Address [address] [place] [address] Care Team Providers Care Door Installer Name Role Phone Brea Goins Unavailable [phone] REASON FOR VISIT f/u Trinteliix Medications Medication SIG (Take, Route, Frequency, Duration) Notes Start Date End Date Status Nasacort Allergy 24HR 55 MCG/ACT 1 spray in each nostril Nasally Once a day Active ZyrTEC Allergy 10 MG 1 capsule Orally Once a day Active Citalopram Hydrobromide 30 MG 1 capsule Orally Once a day for 30 days d/c Buspar D/C Trintellix 11/02/2023 Active Social History Sex Assigned At : Social History Observation Description Sex Assigned At Male Problems Problem Type SNOMED Code ICD Code Onset Dates Problem Status W/U Status Risk Notes Problem [id number] Other obsessive-compu lsive disorders (F42.8) Active confirmed Vital Signs Respiratory Rate 18 /min 11/02/2023 Height 72 in 11/02/2023 Weight 238 lbs 11/02/2023 BMI 32.28 kg/m2 11/02/2023 Height-cm 182.88 cm 11/02/2023 Weight-kg 107.95 kg 11/02/2023 Encounters Encounter Location Date Provider Diagnosis [facility] [email or web address] [facility] [address] [facility] [address] [place] [address] 11/02/2023 Brea Goins POLLY (generalized anxiety disorder) F41.1 and Other obsessive-compulsive disorders F42.8 Assessments Encounter Date Diagnosis (ICD Code) Assessment Notes Treatment Notes Treatment Clinical Notes Section Notes 11/02/2023 POLLY (generalized anxiety disorder) (ICD-10 - [...] potential neurotoxicity and interactions with prescribed medications. Plan Of Treatment Medication Medication Name Sig Start Date Stop Date Notes Citalopram Hydrobromide 30 MG 1 capsule Orally Once a day for 30 days 11/02/2023 d/c Buspar D/C Trintellix Treatment Notes Assessment Notes POLLY (generalized anxiety disorder) Learn ing About Generalized Anxiety Disorder material was published, Generalized Anxiety Disorder: Care Instructions material was published, Learning About Anxiety Disorders material was published Next Appt Details Follow Up: 3 Months, Reason: f/u Celexa Progress Notes * Reji ESTRADA ADOB: (43 yo M)Acc No.[id number]:11/02/2023 Patient: Reji PHAN Provider: JEFFREY BAUGH :1980 A ge:43 Y S ex:Male Date:11/02/2023 Address:[address] [place] [address] Subjective: * Chief Complaints: * 1 . f/u Trinteliix. * HPI: P ast Psychiatric Hospitalizations: Previous psychiatric hospitalizations P revious Psychiatric Hospitalization N o. P ast History of Suicidal attempt H ave you ever attempted suicide in the past N o. Follow up depresison, anxiety chronic since last visit reported Trintellix I have not been takign it I felt no issues on Celexa I felt 20 mg never enough and 40 mg too much and I am now on 30 mg and I feel great and PCP wanted me off SRRI r/t libdo and I am losing weight has helped a lot and excise and I am goign to lose more, and I aer night owls also and not help sex life and also adjusting to being back to work, I can fall asleep fast and used to staying up late since summer. I feel better with anxious, restless and fidgety and I have chronic facial tic, and rx has helped me and I felt bad with anxious and depresison on Buspar and felt better on Celexa, depression improved, no sad or down, no hopeless or helpless i have not went down any rabbit holes lately, OCD improved on Celexa and I have had rabbitt hole issues on Celexa 40 mg dose, I limit intake food and count carbs and calories, and concentration and focus fine, energy fine and motivation and interest good I like technology and text brother a lot, no psychosis no link no SI/H, tolerating rx no s/e Denies SI/HI no plans or intent no thoughts harm to self or others, no self cutting or self harm, no past attempts, no psychiatric hospital, FH none, 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 D epression screening: PHQ-9 L ittle interest or pleasure in doing things N ot at all, F eeling down, depressed, or hopeless N ot at all, T rouble falling or staying asleep, or sleeping too much S everal days, F eeling tired or having little energy N ot at all, P oor appetite or overeating S everal days, F eeling bad about yourself or that you are a failure, or have let yourself or your family down S everal days, T rouble concentrating on things, such as reading the newspaper or watching television N ot at all, M oving or speaking so slowly that other people could have noticed; or the opposite, being so fidgety or restless that you have been moving around a lot more than usual N ot at all, T houghts that you would be better off or of hurting yourself in some way N ot at all, T otal Score 3 , I nterpretation M inimal Depression. D epression Screening: POLLY-7 (2018 Edition) F eeling nervous, anxious, or on edge?Nearly every day, N ot being able to stop or control worrying S everal days, W orrying too much about different things S everal days, T rouble relaxing S everal days, B eing so restless that it is hard to sit still N ot at all, B ecoming easily annoyed or irritable S everal days, F eeling afraid as if something awful might happen S everal days, Total POLLY-7 Score 8 , I f you checked any problems, how difficult have they made it for you to do your work, take care of things at home, or get along with other people? N ot difficult at all, I nterpretation of Total ( 5 to 9) Mild. C [place]-Suicide Severity Rating Scale: Suicide Risk (CSRS-screener) i n the past one month Have you wished you were or wished you could go to sleep and not wake up? N o, i n the past one month Have you actually had any thoughts of killing yourself? N o, H ave you ever done anything, started to do anything, or prepared to do anything to end your life? N o. H istory of Presenting Problem: Pt was seen today and Urine drug screen was done. * ROS: d enies, SOB, Chest pain, cough, reported some dry mouth at times denies no muscle pain, neck joint pain, back- steady gait reported GI issues - GERD hx rx Pepcid PRN, no NV/D Appetite normal- denies- urination issues denies seizures, loss conscious, occasional headaches, no tremors, no abnormal movement d/o reported no depression, anxiety, safe in relationship, sleep stable, no A/V hallucination, no delusions, no link or hypomania, no SI/HI, no agitation, f atigue reported reported seasonal allergies - on RX seen PCP, ENT glasses weight stable. * Medical History: * Medications: T aking Nasacort Allergy 24HR 55 MCG/ACT Aerosol 1 spray in each nostril Nasally Once a day , Taking ZyrTEC Allergy 10 MG Capsule 1 capsule Orally Once a day , Discontinued Trintellix 5 MG Tablet 1 tablet Orally Once a day , Notes to Pharmacist: samples givend/c BusparD/C Celexa, Discontinued Trintellix 10 MG Tablet 1 tablet Orally Once a day , Notes to Pharmacist: d/c Buspar D/C Celexa Objective: * Vitals: R R:18/min, Wt:238lbs, Wt-k.95 kg, Ht: 72 in, Ht-cm: 182.88 cm, BMI:32.28Index, Body Surface Area: 2.34. * Examination: P sychiatry: Appearance: w ell-groomed, appears stated age, well-nourished. Abnormal body movements: n one. Affect / mood: a ppropriate, full range. Aggression: l ow. Anger control: g ood. Attention: g ood. Attitude: c ooperative. Homicidal ideation: n one. Suicidal ideation: n one. Memory status: n o impairment noted. Degree of awareness of surroundings: w ithin normal limits.? Delusions: n o. Hallucinations: n o. Impulse control: g ood. Insight: g ood. Intellectual functioning: a verage. Comprehension - Intellectual function: a verage. Judgement: g ood. Orientation: a wake, alert and oriented x 3. Perceptual disorders: n o perceptual disorder noted. Psychomotor activity: w ithin normal range. Sexual impulse control: g ood. Speech / language: a ppropriate pitch/modulation, clear and coherent, normal rate, volume, and articulation (RVR), proper grammar used. Thought content: a ppropriate. Thought process: i ntact. Assessment: * Assessment: 1. G AD (generalized anxiety disorder) - F41.1 (Primary) 2 . O ther obsessive-compulsive disorders - F42.8 anxiety- stable Celexa 30 mg daily OCD-Celexa 30 mg daily educated on all medications, [...] potential neurotoxicity and interactions with prescribed medications. Plan: * Treatment: * Procedure Codes: G 2211 VISIT COMPLEXITY INHERENT TO ONGOING CARE RELATED TO A PATIENT'S SINGLE, SERIOUS CONDITION OR A COMPLEX CONDITION * Follow Up: 3 Months (Reason: f/u Celexa) * Billing Information: * Visit Code: 07233 OFFICE OUTPATIENT VISIT 25 MINUTES DETAILED HISTORY AND EXAM/MODERATE MEDICAL DECISION MAKING. * Procedure Codes: G2211 VISIT COMPLEXITY INHERENT TO ONGOING CARE RELATED TO A PATIENT'S SINGLE, SERIOUS CONDITION OR A COMPLEX CONDITION. 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 History and Physical Notes * HPI (History of Present Illness) Category Sub-Category Detail Notes Category Not es History of Presenting Problem Pt was seen today and Urine drug screen was done Past Psychiatric Hospitalizations Previous psychiatric hospitalizations Previous Psychiatric Hospitalization: No Follow up depresison, anxiety chronic since last visit reported Trintellix I have not been takign it I felt no issues on Celexa I felt 20 mg never enough and 40 mg too much and I am now on 30 mg and I feel great and PCP wanted me off SRRI r/t libdo and I am losing weight has helped a lot and excise and I am goign to lose more, and I aer night owls also and not help sex life and also adjusting to being back to work, I can fall asleep fast and used to staying up late since summer. I feel better with anxious, restless and fidgety and I have chronic facial tic, and rx has helped me and I felt bad with anxious and depresison on Buspar and felt better on Celexa, depression improved, no sad or down, no hopeless or helpless i have not went down any rabbit holes lately, OCD improved on Celexa and I have had rabbitt hole issues on Celexa 40 mg dose, I limit intake food and count carbs and calories, and concentration and focus fine, energy fine and motivation and interest good I like technology and text brother a lot, no psychosis no link no SI/H, tolerating rx no s/e Denies SI/HI no plans or intent no thoughts harm to self or others, no self cutting or self harm, no past attempts, no psychiatric hospital, FH none, 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, 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, 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 denies smoking- Denies labs PCP and having more done drugs- denies presently taking Celexa 30 mg daily, PRN Xanax 0.25 mg Past History of Suicidal attempt Have yo u ever attempted suicide in the past: No Depression screening PHQ-9 Little inte rest or pleasure in doing things: Not at all Feeling down, depressed, or hopeless: No t at all Trouble falling or staying asleep, or sl eeping too much: Several days Feeling tired or having little energy: N ot at all Poor appetite or overeating: Several day s Feeling bad about yourself o r that you are a failure, or have let yourself or your family down: Several days Trouble concentrating on thi ngs, such as reading the newspaper or watching television: Not at all Moving or speaking so slowly that other people could have noticed; or the opposite, being so fidgety or restless that you have been moving around a lot more than usual: Not at all Thoughts that you would be b crystal off or of hurting yourself in some way: Not at all Total Score: 3 Interpretation: Minimal Depression Depression Screening POLLY-7 (2018 Edition) Feelin g nervous, anxious, or on edge: Nearly every day Not being able to stop or control worryi ng: Several days Worrying too much about different things : Several days Trouble relaxing: Several days Being so restless that it is hard to sit still: Not at all Becoming easily annoyed or irritable: Se veral days Feeling afraid as if something awful lalit ht happen: Several days Total POLLY-7 Score: 8 If you checked any problems, how difficult have they made it for you to do your work, take care of things at home, or get along with other people?: Not difficult at all Interpretation of Total: (5 to 9) Mild [place]-Suicide Severity Rating Scale Suicide Risk (CSRS-screener) in the past one month Have you wished you were or wished you could go to sleep and not wake up?: No in the past one month Have y ou actually had any thoughts of killing yourself?: No Have you ever done anything, started to do anything, or prepared to do anything to end your life?: No Examination Category Sub-Category Detail Notes Category Not es Psychiatry Appearance: well-groomed, ap pears stated age, well-nourished Attitude: cooperative Psychomotor activity: within normal rang e Abnormal body movements: none Attention: good Degree of awareness of surroundings: wit hin normal limits Orientation: awake, alert and carlo ented x 3 Affect / mood: appropriate, full ra nge Speech / language: appropriate pitch/mo dulation, clear and coherent, normal rate, volume, and articulation (RVR), proper grammar used Insight: good Judgement: good Thought process: intact Thought content: appropriate Perceptual disorders: no perceptual diso rder noted Aggression: low Anger control: good Suicidal ideation: none Homicidal ideation: none Intellectual functioning: average Impulse control: good Sexual impulse control: good Memory status: no impairment noted Delusions: no Hallucinations: no Comprehension - Intellectual function: a verage
--- OUTSIDE RECORDS SUMMARY | 2024-04-06 08:17 | XMS_ITS | Encounter Summary ---
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
--- OUTSIDE RECORDS SUMMARY | 2024-04-06 08:17 | XMS_ITS ---
Author Organization [facility] Address [address] [place] [address] Care Team Providers Care Digital Editor Name Role Phone Brea Goins Unavailable [phone] Allergies Allergen (clinical drug ingredient) Drug/Non Drug [...] Oxazepam (BZO) N 0 - 300 ng/ml 4-pvgpepdlce-7,1-wnmvezpu-3,3-diphenylpyrrolidine (APRYL P) N 0 - 300 ng/ml Methamphetamine (MET) N 0 - 1000 ng/ml Methylenedioxymethamphetamine (MDMA) N 0 - 500 ng/ml Morphine (MOP 300/ZWH5231) N 0 - 300 ng/ml Methadone (MTD) N 0 - 300 ng/ml Phencyclidine (PCP) N 0 - 25 ng/ml Propoxyphene (PPX) N 0 - 300 ng/ml Nortriptyline (TCA) N 0 - 1000 ng/ml Oxycodone N 0 - 300 ng/ml REASON FOR VISIT New Patient anxiety Medications Medication SIG (Take, Route, Frequency, Duration) Notes Start Date End Date Status Trintellix 5 MG 1 tablet Orally Once a day for 14 days samples given d/c Buspar D/C Celexa 09/18/2023 Active Trintellix 10 MG 1 tablet Orally Once a day for 30 days d/c Buspar D/C Celexa 09/18/2023 Active ZyrTEC Allergy 10 MG 1 capsule Orally On ce a day Active Nasacort Allergy 24HR 55 MCG/ACT 1 spray in each nostril Nasally Once a day Active Social History Tobacco Use: Social History [...] Problem Status W/U Status Risk Notes Problem [id number] POLLY (generalized anxiety disorder) (F41.1) Active confirmed Vital Signs Blood pressure systolic 119 mm Hg 09/18/19 24 Blood pressure diastolic 79 mm Hg 024 Heart Rate 85 /min 09/18/2023 Height 72 in 09/18/2023 Weight 243 lbs 09/18/2023 BMI 32.95 kg/m2 09/18/2023 Height-cm 182.88 cm 09/18/2023 Weight-kg 110.22 kg 09/18/2023 Encounters Encounter Location Date Provider Diagnosis [facility] [address] [place] [address] 09/18/2023 Brea Goins POLLY (generalized anxiety disorder) F41.1 Assessments Encounter Date Diagnosis (ICD Code) Assessment Notes Treatment Notes Treatment Clinical Notes Section Notes 09/18/2023 POLLY (generalized anxiety disorder) (ICD-10 - F41.1) Learning About Generalized Anxiety Disorder material was published, Generalized Anxiety Disorder: Care Instructions material was published, Learning About Anxiety Disorders material was published 09/18/2023 Other POLLY- Patient is on Buspar [...] card r/o OCD - obessive with hobbies https://www.[facility]. h.gov/health/topics /hpvvpb-nmfjnm-pijz cations https://www.tim.or g/Qfzum-Sgbbku-Losy ess/Treatments/Ment yh-Mcqrew-Wmbuxfcsv ns Recommend decrease/stop cannabis use as it may [...] ORAL) material was published Plan Of Treatment Medication Medication Name Sig Start Date Stop Date Notes Trintellix 5 MG 1 tablet Orally Once a day for 14 days 09/18/2023 samples given d/c Buspar D/C Celexa CeleXA 20 MG 1 tablet Orally Once a day Trintellix 10 MG 1 tablet Orally Once a day for 30 days 09/18/2023 d/c Buspar D/C Celex a busPIRone HCl 5 MG 1 tablet Orally Twic e a day Treatment Notes Assessment Notes POLLY (generalized anxiety disorder) Learn ing About Generalized Anxiety Disorder material was published, Generalized Anxiety Disorder: Care Instructions material was published, Learning About Anxiety Disorders material was published Other POLLY- Patient is on Buspar 5 [...] card r/o OCD - obessive with hobbies https://www.nim.nih.gov/health/topics/mental-heal th-medications https://www.tim.org/Vuprw-Taedht-Hctfgwz/Treatmen ts/Exlaby-Kxssnf-Mwhesftzboh Recommend decrease/stop cannabis use as it may [...] Tablet (VORTIOXETINE - ORAL) material was published Next Appt Details Follow Up: 6 Weeks, Reason: f/u Trintellix Progress Notes * Reji ESTRADA ADOB: (42 yo M)Acc No.[id number]:09/18/2023 Patient: Reji PHAN Provider: JEFFREY BAUGH :1980 A ge:42 Y S ex:Male Date:09/18/2023 Address:[address] [place] [address] Subjective: * Chief Complaints: * 1 . New Patient anxiety. * HPI: P ast Psychiatric Hospitalizations: Previous psychiatric hospitalizations P revious Psychiatric Hospitalization N o. P ast History of Suicidal attempt H ave you ever attempted suicide in the past N o. This is a 42 year old white male here to establish care for anxiety I am in process of coming off SSRI r/t sexual issues i was on Celexa 40 mg since 2007 and Buspar and had dizzy and irritable and blur vision and bear to be around and over emotional and I am goign to try Celexa 30 mg dose and I have not tried anything else beside Celexa and Buspar, I feel ok right now and taper off Buspar, I felt irritbale and very anxious on it and when I lose weight and excise sexual side not a big deal, and I feel no sad, down, no hopeless or helpless, both parents mom passed 2 years ago and farr snot effect daily life and I won parent lottery,a dn sad sometimes, I have really good family, and son, support system, I am sometimes restless and fidgety, I create own problems I am on internet too long, research, videos,and hobbies and rabbit hole and too much time looking at things. I have to understand every technical details, and I have lost a lot sleep over years thinking of it. Alot my problems stem from internet too much, I watch UTube, I need a timer for self on internet, and pset with political videos, sleep good and liek a rock unless brain race and I need average 8-9 hours and rested occasional hard to fall asleep, no nightmares or flashbacks no abuse hx, OCD obessive wiht hobiies, reported, no physical aggression no agitation, and no psychosis, no delusions, no link, I am not a violent person and, I feel over all s/s better since tapering off Buspar and appetite I eat too much I am addicted sugar, and I had A1C 6.5 and lost 60 pounds and A1C went down and weight aubrey and A1C went up again and now count carbs and riding bikes and helps and I monitor food intake and working on weight loss, I crave sugar and mental reward then regret and I need ot take care self, and not be DM, concentration and focus pretty good and especially if I want to focus on it and m otivation and interest, struggle some had house remodel and had a bad experience live in mom's house and did horrible work and lein on house and we had a center maker hand and have pictures and text and we had to finish things last summer, not rested last Fall and this year feel summer I sat around, videos and slept and not done much, been productive and I have not used boat and taught son to ride his bike yesterday, went on vacation and son places, I did not meet goals I had planned this summer c ould be with Buspar and messedwith me, I am very detailed, not the best e nergy sedentary and weight, I had panic attack in past none now, and I have Xanax occasional 0.25 mg if stress and not able ot calm down to sleep, I do not isolate, no crying for no reason, I do not have many friends but close to ones I have and work friends, I have hobbies with pocket knives, [employer] batteries and instrusments and Chemistry, M mom had sepsis and COVID and hosiptal did not tx sepsis and she did I get stress out over things and worried about medical things and I lost my parents young, Denies SI/HI no plans or intent no thoughts harm to self or others, no self cutting or self harm, no past attempts, no psychiatric hospital, FH none, 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 D epression screening: [...] link or hypomania, no SI/HI, no agitation, no fatigue reported reported seasonal allergies - on RX and no sore throat- seen PCP, ENT glasses weight stable. * Medical History: P ast Psychiatric History: Anxiety Disorder, abdominal aortic aneurysm: No, atrial fibrillation: No, chronic fatigue syndrome: No, essential tremor: No, hyperlipidemia: No, hypertension: No, Parkinson's disease: No, restless leg syndrome: No, stroke: No, subdural hematoma: No, type 1 diabetes mellitus: No, type 2 diabetes mellitus: No, vitamin B12 deficiency: No, vitamin D deficiency: No. * Surgical History: S inus Cavity Surgery , Widsom teeth removal , Septoloplasty . * Family History: F ather: , None. M other: , None. B rother: Anxiety Disorder,Panic Disorder. S on: None. 1 brother(s) . 1 son(s) . . * Social History: T obacco Use: T obacco Control (Standard) T obacco use: N onsmoker. S exual History: S exual History H ad sex in the past 12 months (vaginal, oral, or anal)? Y es, w ith W omen only. D rug/Alcohol: D rugs H ave you used drugs other than those for medical reasons in the past 12 months??No. C affeine I ntake: n one. D o you smoke marijuana?: Denies. Do you drink alcohol?: No. AUDIT-C (Standard) D id you have a drink containing alcohol in the past year? N o,?Interpretation P ositive. H ousehold: H ourob M arital status: m arried, N umber of adults in household: 2 , N umber of children in household: 1 son, M arital status of the child's parents: m arried, W ith whom does the child live? w ith both parents, A mi household tobacco use? N o. 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 Safety issues A re there any firearms in the house? N o. S ocial History: H ousegumaro M arital Status: M arried, N umber of Adults in household: 2 , N umber of Children in Household: 1 , L mohinder of Education: P [employer]/Masters/PhD. * Medications: T aking busPIRone HCl 5 MG Tablet 1 tablet Orally Twice a day , Taking CeleXA 20 MG Tablet 1 tablet Orally Once a day , Taking Nasacort Allergy 24HR 55 MCG/ACT Aerosol 1 spray in each nostril Nasally Once a day , Taking ZyrTEC Allergy 10 MG Capsule 1 capsule Orally Once a day , Medication List reviewed and reconciled with the patient * Allergies: S ulfa Antibiotics, Levofloxacin, Azelastine HCl. Objective: * Vitals: B P:119/79mm Hg, HR:85/min, Wt:243lbs, Wt-k.22 kg, Ht: 72 in, Ht-cm: 182.88 cm, BMI:32.95Index, Body Surface Area: 2.36. * Examination: P sychiatry: Appearance: w ell-groomed, [...] AD (generalized anxiety disorder) - F41.1 (Primary) Plan: * Treatment: 2. O thers Notes: POLLY- Patient is on Buspar 5 mg [...] card r/o OCD - obessive with hobbies https://www.nimh.nih.gov/health/topics/mental-hea [facility]-medicationshttps://www.tim.org/About-Mental- Illness/Treatments/Fjfifh-Jiwbax-Bdtdseesiiu Recommend decrease/stop cannabis use as it maybe negatively impacting mood, motivation, anxiety, sleep, focus; can alsocontribute to development of psychosis Patient educated on allmedications including potential benefits, side effects, risks. Educated onproper dosing schedule and importance of compliance Discussed and educated pt regarding benzodiazepines aregenerally not intended for prolonged use and that use can cause tolerance,dependence, depression, and associated memory issues including dementias (thislist is not exhaustive). Benzodiazepine use is generally not recommendedconcurrently with pain medications and/or other controlled substances educated on all medications, benefits, side effects andrisk, and educated on depression, anxiety, and ADHD, mood d/o and educated oncompliance of medications, metabolic and movement d/o education appointment is,continue therapy discussion with patient about course of treatment and patientinstructions. education on serotonin syndrome SSRI/SNRI side effectsdiscussed including but not limited to, gastric upset, nausea, vomiting,diarrhea and/or constipation, weight changes, sexual side effects includingloss of libido, increased suicidal thoughts/behaviors in children and youngadults, and serotonin syndrome. Second generationantipsychotics (SGAs) have metabolic syndrome issues with weight gain, increasein prolactin, increased waist circumference, increased lipids, and increasedglucose. Thus routine monitoring of weight, metabolic labs, etc. is indicated.A general rank ordering of antipsychotics that have the greatest to the least riskof metabolic effects is olanzapine, quetiapine, risperidone, ziprasidone, andaripiprazole. However, weight gain can occur with all of these drugs andconsiderable variability exists among patients receiving the same drug regardingthe risk of metabolic effects. Anti-psychotic agents not only increase the riskof metabolic disorder, they also increase the risk of CVA, akathisia, andmovement disorders including EPS or tardive dyskinesia (more common with firstgeneration antipsychotics) and more. Medication Managementand Follow-Up- Plan:- Schedule follow-up appointments every 1-3months to monitor the patient's response to the medication regimen. - Reinforce the importance of avoidingrecreational drug use due to potential neurotoxicity and interactions withprescribed medications. , Learning About Low-Fat Eating material [...] Tablet (VORTIOXETINE - ORAL) material was published * Labs: * L ab: UDT (Collection Date & Time - 09/18/2023 10:10 AM) Value Reference Range T HC N 0 - 50 ng/ml * C ocaine N 0 - 300 ng/ml * A mphetamine N 0 - 1000 ng/ml * B uprenorphine (BUP) N 0 - 10 ng/ml * S ecobarbital (Bar) N 0 - 300 ng/ml * O xazepam (BZO) N 0 - 300 ng/ml * 2 -ethylidene-1,2-wjvijdnc-6,3-diphenylpyrrolidine (EDDP) N 0 - 300 ng/ml * M ethamphetamine (MET) N 0 - 1000 ng/ml * M ethylenedioxymethamphetamine (MDMA) N 0 - 500 ng/ml * M orphine (MOP 300/WGI0484) N 0 - 300 ng/ml * M ethadone (MTD) N 0 - 300 ng/ml * P hencyclidine (PCP) N 0 - 25 ng/ml * P ropoxyphene (PPX) N 0 - 300 ng/ml * N ortriptyline (TCA) N 0 - 1000 ng/ml * O xycodone N 0 - 300 ng/ml * Procedure Codes: 8 0306 DRUG TST PRSMV READ INSTRMNT ASSTD DIR OPT OBS, 43078 DRUG TEST PRSMV READ DIRECT OPTICAL OBS OR DATE, Modifiers: QW , [address]5717 PSYCHIATRIC DIAGNOSTIC EVAL W/MEDICAL SERVICES, G2211 VISIT COMPLEXITY INHERENT TO ONGOING CARE RELATED TO A PATIENT'S SINGLE, SERIOUS CONDITION OR A COMPLEX CONDITION * Follow Up: 6 Weeks (Reason: f/u Trintellix) * Billing Information: * Visit Code: * Procedure Codes: 18993 DRUG TST PRSMV READ INSTRMNT ASSTD DIR OPT OBS. 08863 DRUG TEST PRSMV READ DIRECT OPTICAL OBS OR DATE. Modifiers: QW 40573 PSYCHIATRIC DIAGNOSTIC EVAL W/MEDICAL SERVICES. G2211 VISIT COMPLEXITY INHERENT TO ONGOING CARE RELATED TO A PATIENT'S SINGLE, SERIOUS CONDITION OR A COMPLEX CONDITION. * Sign off status: Completed true * Provider: JEFFREY BAUGH Date: 0 09/18/2023 Generated for Katia malhotra/[place]/James on: 0 04/06/2024 08:17 AM MANAGER OF OPERATIONS History and Physical Notes * HPI (History of Present Illness) Category Sub-Category Detail Notes Category Not es History of Presenting Problem Pt was seen today and Urine drug screen was done Past Psychiatric Hospitalizations Previous psychiatric hospitalizations Previous Psychiatric Hospitalization: No This is a 42 year old white male here to establish care for anxiety I am in process of coming off SSRI r/t sexual issues i was on Celexa 40 mg since 2007 and Buspar and had dizzy and irritable and blur vision and bear to be around and over emotional and I am goign to try Celexa 30 mg dose and I have not tried anything else beside Celexa and Buspar, I feel ok right now and taper off Buspar, I felt irritbale and very anxious on it and when I lose weight and excise sexual side not a big deal, and I feel no sad, down, no hopeless or helpless, both parents mom passed 2 years ago and farr snot effect daily life and I won parent giuliana,a dn sad sometimes, I have really good family, and son, support system, I am sometimes restless and fidgety, I create own problems I am on internet too long, research, videos,and hobbies and rabbit hole and too much time looking at things. I have to understand every technical details, and I have lost a lot sleep over years thinking of it. Alot my problems stem from internet too much, I watch [employer], I need a timer for self on internet, and pset with political videos, sleep good and liek a rock unless brain race and I need average 8-9 hours and rested occasional hard to fall asleep, no nightmares or flashbacks no abuse hx, OCD obessive wiht hobiies, reported, no physical aggression no agitation, and no psychosis, no delusions, no link, I am not a violent person and, I feel over all s/s better since tapering off Buspar and appetite I eat too much I am addicted sugar, and I had A1C 6.5 and lost 60 pounds and A1C went down and weight aubrey and A1C went up again and now count carbs and riding bikes and helps and I monitor food intake and working on weight loss, I crave sugar and mental reward then regret and I need ot take care self, and not be DM, concentration and focus pretty good and especially if I want to focus on it and motivation and interest, struggle some had house remodel and had a bad experience live in mom's house and did horrible work and lein on house and we had a center maker hand and have pictures and text and we had to finish things last summer, not rested last Fall and this year feel summer I sat around, videos and slept and not done much, been productive and I have not used boat and taught son to ride his bike yesterday, went on vacation and son places, I did not meet goals I had planned this summer could be with Buspar and messedwith me, I am very detailed, not the best energy sedentary and weight, I had panic attack in past none now, and I have Xanax occasional 0.25 mg if stress and not able ot calm down to sleep, I do not isolate, no crying for no reason, I do not have many friends but close to ones I have and work friends, I have hobbies with pocket knives, [employer] batteries and instrusments and Chemistry, M mom had sepsis and COVID and hosiptal did not tx sepsis and she did I get stress out over things and worried about medical things and I lost my parents young, Denies SI/HI no plans or intent no thoughts harm to self or others, no self cutting or self harm, no past attempts, no psychiatric hospital, FH none, 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
--- OUTSIDE RECORDS SUMMARY | 2024-04-06 08:17 | XMS_ITS | Referral Summary ---
Author Organization [facility] Address [address] [facility] [address] [place] [phone] Phone Care Team Providers Care Cattle Sorter Name Role Phone Fausto Meza MD Primary [...] day as needed for heartburn Active multivit kxcqptpb-jvfl-P A-calcium (THERA-M) 9 mg iron-400 mcg tabletIndicatio ns:Vitamin Deficiency Prevention Take 1 tablet by mouth daily Active omega 6-xmi-spk-fish oil (Fish OiL) 100-160-1,000 mg capsule Take [...] 02/23/2021 Assessment & Plan (02/23/2021 11:24 AM PATTERN ROOM ATTENDANT): Worsening - Patient is symptomatic Urine dip was negative this time as well as the beginning of January Placed on Levaquin for 14 days Referral to urology Controlled type 2 diabetes m ellitus without complication, without long-term current use of insulin ([facility]) 08/16/2019 Obstructive sleep apnea 09/13/2018 BMI 31.0-31.9,adult [...] on file Legal Sex Male 9:17 PM PATTERN ROOM ATTENDANT Gender Identity Male 09/13/2019 9:52 AM CDT [...] HEMOGLOBIN A1C Routine 04/06/2022 3 :55 PM PATTERN ROOM ATTENDANT Controlled type 2 diabetes mellitus without complication, without long-term current use of insulin ([facility]) (HCC) EGFR Routine 04/06/2022 3:32 PM PATTERN ROOM ATTENDANT Annual physical exam LIPID PANEL Routine 04/06/2022 3:32 PM PATTERN ROOM ATTENDANT Annual physical exam ALBUMIN CREATININE RATIO, URINE Routine 04/06/2022 3:32 PM PATTERN ROOM ATTENDANT Controlled type 2 diabetes mellitus without complication, without long-term current use of insulin (CMS/HCC) (HCC) DIABETIC EYE EXAM Routine 09/10/2019 COLONOSCOPY REPORT 02/24/2015 from Last 3 Months or Most Recently Relevant to Health Maintenance Results * POCT hemoglobin A1c (04/06/2022 3:55 PM PATTERN ROOM ATTENDANT) Hemoglobin A1C, POC 5.8 % Blood 04/06/2022 3:55 PM PATTERN ROOM ATTENDANT us Fausto Meza MD POINT OF CARE TEST ORDER JO Final Result * eGFR (04/06/2022 3:32 PM PATTERN ROOM ATTENDANT) eGFR 98 mL/min/1. 73 m2 [facility] Comment: Interpretive Data Reference Interval Normal >/= [...] last reviewed 2020. Blood 04/06/2022 3:32 PM PATTERN ROOM ATTENDANT 04/06/2022 6:08 PM PATTERN ROOM ATTENDANT us Fausto Meza MD LAB BLOOD ORDERABLES Fin al Result Performing Organization Address City/[facility]/ZIP Co de Phone Number [facility] [address] Department [place] [address] * Albumin Creatinine Ratio, Urine (04/06/2022 3:32 PM PATTERN ROOM ATTENDANT) Albumin Ur <12.0 mg/L [facility] Comment: Interpretive Data No reference range established. Current interpretive data was last revised 2018. Creatinine Ur 132.4 mg/dL [facility] Comment: Interpretive Data No reference range established. Current interpretive data was last revised 2018. Albumin Creatinine Ratio, Ur <9 1 - 29 mg/g [facility] Urine 04/06/2022 3:32 PM PATTERN ROOM ATTENDANT 04/06/2022 6:08 PM PATTERN ROOM ATTENDANT us Fausto Meza MD LAB URINE ORDERABLES Fin al Result [facility] [address] Department [place] [address] * (ABNORMAL) Lipid panel (04/06/2022 3:32 PM PATTERN ROOM ATTENDANT) Cholesterol 237(H) 30 - 199 mg/dL [facility] Comment: Interpretive Data Ages < or = [...] revised on 2017. Triglycerides 275(H) <=149 mg/dL [facility] Comment: Interpretive Data Ages < or = [...] revised on 2017. HDL 57 >=40 mg/dL [facility] Comment: Interpretive Data Ages < or = [...] on 2017. LDL, calculated 125 <=129 mg/dL [facility] Comment: Interpretive Data Ages < or = [...] revised on 2017. Non-HDL Cholesterol 180 mg/dL [facility] Comment: Interpretive Data Ages < or = [...] last revised on 2017. Chol/HDL ratio 4 [facility] Blood 04/06/2022 3:32 PM PATTERN ROOM ATTENDANT 04/06/2022 6:08 PM PATTERN ROOM ATTENDANT Fausto Meza MD LAB BLOOD ORDERABLES Fin al Result [facility] [address] Department [place] [address] * Diabetic Eye Exam (09/10/2019) Historical Provider HEALTH MAINTENANCE Final Result * COLONOSCOPY REPORT (02/24/2015) Anatomical Region Laterality Modality Other Narrative 02/24/2015 Ordered by an unspecified provider. Historical Provider GI PROCEDURE ORDERABLES F inal Result from Last 3 Months or Most Recently Relevant to Health Maintenance Insurance [id number] PLUS [id number] PLUS [facility] CHOICE PLUS Care Teams Cattle Sorter Relationship Specialty Start Date End Date Fausto Meza MD [address] [address] PCP - General 05/27/16
[2024-04-06 08:59] LABS: Alanine Aminotransferase 37 U/L (6-50); Albumin Level 4.3 g/dL (3.5-5.1); Alkaline Phosphatase 66 U/L (38-126); Anion Gap 11 mmol/L (4-12); Aspartate Amino Transferase 32 U/L (17-59); Bilirubin,Total 0.8 mg/dL (0.2-1.3); Blood Urea Nitrogen 22 mg/dL (9-20); Calcium 9.3 mg/dL (8.4-10.2); Carbon Dioxide 26 mmol/L (22-30); Chloride 104 mmol/L (98-107); Cholesterol 221 mg/dL (0-200); Estimated Glomerular Filt Rate > 60; Glucose 101 mg/dL (65-110); HDL Direct 57 mg/dL; Potassium 4.3 mmol/L (3.4-5.0); Sodium 141 mmol/L (137-145); Triglycerides 152 mg/dL (<150)
[2024-04-06 09:10] LABS: LDL Cholesterol Direct 103 mg/dL
[2024-04-06 09:21] LABS: Hematocrit 43.3 % (42.0-52.0); Hemoglobin 14.4 g/dL (14.0-18.0); Mean Corpuscular HGB Conc 33.3 g/dl (32-36); Mean Corpuscular Hemoglobin 30.2 pg (26-34); Mean Corpuscular Volume 90.8 fl (80-100); Mean Platelet Volume 9.8 fl (7.4-10.4); Platelet Count Result 296 k/mm3 (150-375); Red Blood Count 4.77 M/mm3 (4.6-6.20); Red Cell Distribution Width 12.1 % (11.5-14.5); White Blood Count 8.1 K/mm3 (4.5-10.0)
[2024-04-06 09:48] LABS: Hepatitis B Surface Antigen Negative (Negative)
[2024-04-06 09:54] LABS: HAV RESULT Negative (Negative); Hepatitis B Core IgM Result Negative (Negative)
[2024-04-06 10:05] LABS: Hepatitis C Virus Antibody Negative (Negative)
== END 2024-04-06 08:14 | disposition home or self-care (01) ==
LOC: ANHLAB 08:14
PROVIDERS: PCP Family Medicine; Visit Provider Family Medicine
DX: R00.2 Palpitations (principal); F41.1 Generalized anxiety disorder; E11.9 Type 2 diabetes mellitus without complications; R42 Dizziness and giddiness
CPT/HCPCS: 36415; 80053; 80061; 80074; 83036; 85027

== ENCOUNTER 2024-08-03 10:45 | Emergency (ER) | payer OTHER, SELFPAY ==
[2024-08-03 10:59] VITALS: BP 127/71; PULSE 77; RESP 16; TEMP 36.3; O2SAT 99
--- NOTE | 2024-08-03 11:31 | ED.URI ---
HPI - URI/Sore Throat General Chief Complaint: Upper Respiratory Infection Stated Complaint: Sinus Infection Symptoms Source: patient and RN notes reviewed Mode of arrival: ambulatory Limitations: no limitations History of Present Illness HPI Narrative: 43 y/o male presented for c/o intermittent sore throat, nasal congestion and face pressure. Onset 3 weeks. Denies sob, wheezing, n/v/d/f/c. Uses nasacort and Zyrtec daily. Wears cpap. Pt reports a sinus infection 2 months ago. MD elicited complaint: cough Related Data Home Medications ?Medication ?Instructions ?Recorded ?Confirmed ?Last Taken ?Type cetirizine 10 mg tablet (Zyrtec) 10 mg PO DAILY 02/16/23 05/06/24 Unknown History triamcinolone acetonide 55 mcg 2 spray intranasal DAILY 02/16/23 05/06/24 Unknown History nasal spray aerosol (Nasacort Allergy) Allergies Allergy/AdvReac Type Severity Reaction Status Date / Time azelastine Allergy Intermediate Hives Verified 08/03/24 11:34 levofloxacin Allergy Mild Rash Verified 03/25/24 08:22 Sulfa (Sulfonamide Allergy Rash Verified 03/25/24 08:22 Antibiotics) fluoroquinolone Allergy Intermediate Rash Uncoded 08/03/24 11:34 Review of Systems Review of Systems: CONSTITUTIONAL: denies malaise, body aches, chills, sweats, fever EYES: Denies visual changes, redness, or discharge ENT: Reports rhinorrhea, congestion, sinus pain, otalgia, sore throat CARDIOVASCULAR: Denies chest pain, palpitations, edema RESPIRATORY: Reports cough, post nasal drainage. Denies dyspnea GASTROINTESTINAL: Denies abdominal pain, nausea, vomiting, diarrhea SKIN: Denies rash or itching NEUROLOGIC: Denies headache PMFSH Past Medical History Medical History Heel pain Libido, decreased Preventative health care Social History Social History Smoking status: Never smoker Alcohol intake: never Substance use: never Substance use type: does not use Living arrangements: with family Occupation/Education: occupation Gender identity (if verbalized by the patient): Male Sexual Orientation (if Verbalized by the Patient): Straight or Heterosexual Spiritual care concerns: No Agree to blood products: Yes Exam Narrative: GENERAL: well-appearing, nontoxic no acute distress. EYES: conjunctivae clear ENT: Mucous membranes moist. TM pearly rodriguez with dull light reflex bilaterally; no tragal tenderness. Oropharynx erythematous without lesions or exudate, no drooling, no hoarseness, no trismus, uvula midline. No tripod positioning, muffled voice, soft palate or pharyngeal wall bulging NECK: Supple. No lymphadenopathy CHEST: Clear to auscultation, breath sounds equal. No wheezing, rhonchi, rales, or stridor. No respiratory distress, speaks in full sentences. HEART: Regular rate and rhythm. No murmur heard. SKIN: Warm, dry, no rash. NEURO: Alert and oriented x3. PSYCH: Normal mood and affect Course Course Emergency Course: Patient is aware of diagnosis, understands and agrees to treatment plan. Anticipatory guidance given. Patient agrees to follow-up as directed and is aware of reasons to seek care at the emergency department. Portions of this record may have been created with voice recognition software Level of Care: Express Care Visit Vital Signs Vital signs: Vital Signs Temperature 97.4 F L 08/03/24 10:59 Pulse Rate 77 08/03/24 10:59 Respiratory Rate 16 08/03/24 10:59 Blood Pressure 127/71 08/03/24 10:59 Pulse Oximetry 99 08/03/24 10:59 Temperature 97.4 F L 08/03/24 10:59 Pulse Rate 77 08/03/24 10:59 Respiratory Rate 16 08/03/24 10:59 Blood Pressure 127/71 08/03/24 10:59 Pulse Oximetry 99 08/03/24 10:59 reviewed MDM - URI/Sore Throat MDM Narrative Medical decision making narrative: Discussed physical exam findings. Advised supportive measures and signs/symptoms to go to the ER. Pt is appropriate for outpt treatment and f/u. Differential Diagnosis Differential diagnosis: Likely upper respiratory infection, sinusitis and viral infection Discharge Plan Discharge Clinical Impression: Sinusitis Patient Disposition: Home Condition: Stable Instructions: Antibiotic Form, Sinusitis (ED) Additional Instructions: Take antibiotic as directed Recommendations: Flonase spray and Zyrtec (or Claritin/Lise) Tylenol 1000mg every 8 hours as needed for pain Symptomatic treatment includes: rest, fluids, and increase humidity of the air at home. Follow up with your primary care provider/ENT as needed. Go to the ER for worsening symptoms or concerns. Patient Language: [place] Prescriptions: New amoxicillin-pot clavulanate 875-125 mg tablet 1 tablet PO Q12H 7 Days Qty: 14 0RF No Action triamcinolone acetonide [Nasacort Allergy] 55 mcg aerosol,spray 2 spray intranasal DAILY Rx Instructions: administer into each nostril cetirizine [Zyrtec] 10 mg tablet 10 mg PO DAILY Zepbound 2.5 mg/0.5 mL pen injector 2.5 mg subcut WEEKLY Qty: 2 0RF Rx Instructions: for 4 weeks citalopram 10 mg tablet 10 mg PO DAILY Qty: 90 1RF Rx Instructions: Take with 20mg tablet for a total of 30mg daily citalopram 20 mg tablet 20 mg PO DAILY Qty: 90 1RF Follow-up/Referrals: Toño Ambrocio MD [Primary Care Provider] - Time of Disposition: 11:38
== END 2024-08-03 11:39 | disposition home or self-care (01) ==
PROVIDERS: Emergency Provider Nurse Practitioner Family; PCP Family Medicine
DX: J32.9 Chronic sinusitis, unspecified (principal)
CPT/HCPCS: 99213; G0463